=== PATIENT | male | born 1940 | race Caucasian/White ===

== ENCOUNTER → 2023-05-21 09:24 | Outpatient (REF) | payer OTHER, SELFPAY ==
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
[2023-05-21 10:24] VITALS: BP 99/43
[2023-05-21 10:40] VITALS: BP 97/42
[2023-05-21 12:41] VITALS: BP 104/45
[2023-06-05 08:48] LABS: % Basophils 0.9 % (0-2); % Eosinophils 5.5 % (0-6); % Immature Granulocytes 0.3 % (0-0.5); % Lymphocytes 15.7 % (20.5-51.1); % Neutrophils 57.6 % (42.2-75.2); Absolute Eosinophils 0.2 10^3/uL (0-0.7); Absolute Lymphocytes 0.5 10^3/uL (1.2-3.4); Absolute Monocytes 0.7 10^3/uL (0.1-0.6); Absolute Neutrophils 1.9 10^3/uL (1.4-6.5); Hematocrit 29.7 % (39.0-52.0); Hemoglobin 9.6 g/dL (13.0-18.0); Mean Corp Hgb Conc. 32.3 g/dL (33.0-37.0); Mean Corpuscular Volume 105.3 fL (80.0-94.0); Mean Platelet Volume 10.6 fL (7.4-10.4); Platelet Count 228 10^3/uL (130-400); Red Blood Cell Count 2.82 10^6/uL (4.70-6.10); White Blood Cell Count 3.3 10^3/uL (4.8-10.8)
[2023-06-07 19:26] LABS: Erythropoietin (EPO) 1204 mU/mL (4-27)
== END ==
LOC: OIDL 09:24
PROVIDERS: ATTENDING PHYSICIAN Internal Medicine Hematology & Oncology; FAMILY PHYSICIAN Family Medicine
DX: D46.9 Myelodysplastic syndrome, unspecified (principal); R53.83 Other fatigue; I80.202 Phlebitis and thrombophlebitis of unspecified deep vessels of left lower extremity; D50.0 Iron deficiency anemia secondary to blood loss (chronic); D51.9 Vitamin B12 deficiency anemia, unspecified; D52.8 Other folate deficiency anemias
CPT/HCPCS: 36415; 36430; 82668; 85025; 86850; 86900; 86901; 86920; P9016

== ENCOUNTER 2023-10-03 11:19 | Outpatient (RCR) | payer OTHER, SELFPAY ==
[2023-10-03 11:38] VITALS: BP 113/34
[2023-10-03 12:03] VITALS: BP 113/34
[2023-10-03 12:28] VITALS: BP 108/43
[2023-10-03 15:21] VITALS: BP 108/48
== END 2023-10-11 23:59 | disposition home or self-care (01) ==
LOC: OID 11:19
PROVIDERS: ATTENDING PHYSICIAN Internal Medicine Hematology & Oncology; FAMILY PHYSICIAN Family Medicine
DX: I80.202 Phlebitis and thrombophlebitis of unspecified deep vessels of left lower extremity (principal)
CPT/HCPCS: 36430; 86850; 86900; 86901; 86920; P9016

== ENCOUNTER → 2023-10-30 08:05 | Outpatient (REF) | payer OTHER, SELFPAY ==
[2023-10-30 08:26] LABS: % Basophils 1.4 % (0-2); % Eosinophils 6.2 % (0-6); % Immature Granulocytes 0.5 % (0-0.5); % Lymphocytes 11.9 % (20.5-51.1); % Monocytes 16.2 % (1.7-9.3); % Neutrophils 63.8 % (42.2-75.2); Absolute Basophils 0.1 10^3/uL (0-0.2); Absolute Eosinophils 0.2 10^3/uL (0-0.7); Absolute Lymphocytes 0.4 10^3/uL (1.2-3.4); Absolute Monocytes 0.6 10^3/uL (0.1-0.6); Absolute Neutrophils 2.4 10^3/uL (1.4-6.5); Hematocrit 26.3 % (39.0-52.0); Hemoglobin 8.7 g/dL (13.0-18.0); Mean Corp Hgb Conc. 33.1 g/dL (33.0-37.0); Mean Corpuscular Hgb 34.1 pg (27.0-31.0); Mean Corpuscular Volume 103.1 fL (80.0-94.0); Mean Platelet Volume 10.9 fL (7.4-10.4); Platelet Count 181 10^3/uL (130-400); Red Blood Cell Count 2.55 10^6/uL (4.70-6.10); Red Cell Dist. Width 15.7 % (11.5-14.5); White Blood Cell Count 3.7 10^3/uL (4.8-10.8)
[2023-10-30 09:43] LABS: ALT (SGPT) < 10 U/L (0-50); AST (SGOT) 21 U/L (17-59); Albumin 3.6 g/dl (3.5-5.0); Alkaline Phosphatase 135 U/L (38-126); Blood Urea Nitrogen 23 mg/dl (9-20); Calcium 8.4 mg/dl (8.4-10.2); Carbon Dioxide 27 mmol/L (22-30); Chloride 103 mmol/L (98-107); Glucose 93 mg/dl (70-99); HDL Cholesterol 51 mg/dl; LDL Cholesterol, Calculated 11 mg/dl; Potassium 4.2 mmol/L (3.5-5.1); Sodium 136 mmol/L (135-145); Total Cholesterol 72 mg/dl (50-199); Total Protein 7.8 g/dl (6.3-8.2); Triglyceride 54 mg/dl (10-149); Very Low Density Lipoprotein 10 mg/dl (0-30); eGFR > 60.00
[2023-10-30 10:12] LABS: Total Bilirubin 1.2 mg/dl (0.2-1.3)
== END ==
LOC: OIDL 08:05
PROVIDERS: ATTENDING PHYSICIAN Internal Medicine Hematology & Oncology; FAMILY PHYSICIAN Family Medicine
DX: I80.202 Phlebitis and thrombophlebitis of unspecified deep vessels of left lower extremity (principal); D46.9 Myelodysplastic syndrome, unspecified; D50.0 Iron deficiency anemia secondary to blood loss (chronic); D51.9 Vitamin B12 deficiency anemia, unspecified; D52.8 Other folate deficiency anemias
CPT/HCPCS: 36415; 80053; 80061; 82728; 85025

== ENCOUNTER → 2023-11-20 10:01 | Outpatient (REF) | payer OTHER, SELFPAY ==
[2023-11-20 10:14] LABS: % Basophils 0.8 % (0-2); % Eosinophils 3.6 % (0-6); % Immature Granulocytes 2.5 % (0-0.5); % Lymphocytes 9.2 % (20.5-51.1); % Monocytes 11.5 % (1.7-9.3); % Neutrophils 72.4 % (42.2-75.2); Absolute Eosinophils 0.2 10^3/uL (0-0.7); Absolute Immature Granulocytes 0.1 10^3/uL (0-0.05); Absolute Lymphocytes 0.5 10^3/uL (1.2-3.4); Absolute Monocytes 0.6 10^3/uL (0.1-0.6); Absolute Neutrophils 3.8 10^3/uL (1.4-6.5); Hematocrit 22.3 % (39.0-52.0); Hemoglobin 7.4 g/dL (13.0-18.0); Mean Corp Hgb Conc. 33.2 g/dL (33.0-37.0); Mean Corpuscular Hgb 34.7 pg (27.0-31.0); Mean Corpuscular Volume 104.7 fL (80.0-94.0); Mean Platelet Volume 9.4 fL (7.4-10.4); Platelet Count 299 10^3/uL (130-400); Red Blood Cell Count 2.13 10^6/uL (4.70-6.10); Red Cell Dist. Width 15.8 % (11.5-14.5); White Blood Cell Count 5.2 10^3/uL (4.8-10.8)
== END ==
LOC: OIDL 10:01
PROVIDERS: ATTENDING PHYSICIAN Internal Medicine Hematology & Oncology; FAMILY PHYSICIAN Family Medicine
DX: D46.9 Myelodysplastic syndrome, unspecified (principal); D50.0 Iron deficiency anemia secondary to blood loss (chronic); I80.202 Phlebitis and thrombophlebitis of unspecified deep vessels of left lower extremity
CPT/HCPCS: 36415; 85025; 86850; 86900; 86901; 86920

== ENCOUNTER → 2023-12-04 08:36 | Outpatient (REF) | payer OTHER, SELFPAY ==
[2023-12-04 09:01] LABS: % Basophils 1.8 % (0-2); % Eosinophils 4.6 % (0-6); % Immature Granulocytes 0.9 % (0-0.5); % Lymphocytes 11.7 % (20.5-51.1); % Monocytes 25.2 % (1.7-9.3); % Neutrophils 55.8 % (42.2-75.2); Absolute Basophils 0.1 10^3/uL (0-0.2); Absolute Eosinophils 0.2 10^3/uL (0-0.7); Absolute Lymphocytes 0.4 10^3/uL (1.2-3.4); Absolute Monocytes 0.8 10^3/uL (0.1-0.6); Absolute Neutrophils 1.8 10^3/uL (1.4-6.5); Hematocrit 26.7 % (39.0-52.0); Hemoglobin 8.7 g/dL (13.0-18.0); Mean Corp Hgb Conc. 32.6 g/dL (33.0-37.0); Mean Corpuscular Hgb 32.6 pg (27.0-31.0); Mean Platelet Volume 10.6 fL (7.4-10.4); Platelet Count 184 10^3/uL (130-400); Red Blood Cell Count 2.67 10^6/uL (4.70-6.10); Red Cell Dist. Width 18.1 % (11.5-14.5); White Blood Cell Count 3.3 10^3/uL (4.8-10.8)
== END ==
LOC: OIDL 08:36
PROVIDERS: ATTENDING PHYSICIAN Internal Medicine Hematology & Oncology; FAMILY PHYSICIAN Family Medicine
DX: I80.202 Phlebitis and thrombophlebitis of unspecified deep vessels of left lower extremity (principal); D46.9 Myelodysplastic syndrome, unspecified; D50.0 Iron deficiency anemia secondary to blood loss (chronic); D51.9 Vitamin B12 deficiency anemia, unspecified; D52.8 Other folate deficiency anemias
CPT/HCPCS: 36415; 85025

== ENCOUNTER → 2023-12-04 09:24 | Outpatient (REF) | payer OTHER, SELFPAY | LOC: RAD 09:24 | PROVIDERS: ATTENDING PHYSICIAN Internal Medicine Hematology & Oncology; FAMILY PHYSICIAN Family Medicine | DX: I80.202 Phlebitis and thrombophlebitis of unspecified deep vessels of left lower extremity (principal) | CPT/HCPCS: 71260; 74177; Q9967 ==

== ENCOUNTER → 2023-12-07 07:05 | Outpatient (REF) | payer OTHER, SELFPAY ==
[2023-12-07] VITALS (7 sets, daily range): BP systolic 61–115; BP diastolic 47–83
[2023-12-07 07:42] LABS: Hematocrit 24.7 % (39.0-52.0); Hemoglobin 8.1 g/dL (13.0-18.0); Mean Corp Hgb Conc. 32.8 g/dL (33.0-37.0); Mean Corpuscular Hgb 32.3 pg (27.0-31.0); Mean Corpuscular Volume 98.4 fL (80.0-94.0); Mean Platelet Volume 10.2 fL (7.4-10.4); Platelet Count 245 10^3/uL (130-400); Red Blood Cell Count 2.51 10^6/uL (4.70-6.10); Red Cell Dist. Width 18.5 % (11.5-14.5); White Blood Cell Count 2.8 10^3/uL (4.8-10.8)
[2023-12-07 08:07] LABS: Absolute Neutrophils -Man Diff 1.5 10^3/uL (1.4-6.5); Anisocytosis 1+; Band Neutrophils 2 % (0-3); Eosinophils 5 % (0-6); Lymphocytes 24 % (20-51); Monocytes 16 % (2-9); Normal RBC Morphology No; Ovalocytes 2+; Platelets Checked Yes; Segmented Neutrophils 53 % (42-75)
[2023-12-07 08:08] LABS: Polychromasia Slight; Schistocytes Slight; Tear Drop Red Blood Cells Slight; Total Cells Counted 100
[2023-12-07 08:10] LABS: PT 19.8 Sec (11.4-14.6)
[2023-12-07] MEDS: ATIVAN 0.5 MG IV (08:38)
[2023-12-07] MEDS: FLUSH (NSS) 1 FLUSH IV (08:38)
[2023-12-07] MEDS: NSS (PRESERVATIVE FREE) 0.25 ML IV (08:38)
== END ==
LOC: RADI 07:05
PROVIDERS: Physician Assistant; ATTENDING PHYSICIAN Internal Medicine Hematology & Oncology; FAMILY PHYSICIAN Family Medicine
DX: D46.9 Myelodysplastic syndrome, unspecified (principal); D50.0 Iron deficiency anemia secondary to blood loss (chronic); I80.202 Phlebitis and thrombophlebitis of unspecified deep vessels of left lower extremity; D51.9 Vitamin B12 deficiency anemia, unspecified; D52.8 Other folate deficiency anemias; D68.8 Other specified coagulation defects
CPT/HCPCS: 88305; 88311; 88312; 36415; 38222; 77012; 85025; 85610; 88313; 88341; 88342

== ENCOUNTER 2023-12-11 08:39 | Outpatient (RCR) | payer OTHER, SELFPAY ==
[2023-11-22 09:32] VITALS: BP 99/46
[2023-11-22 09:45] VITALS: BP 99/46
[2023-11-22 10:04] VITALS: BP 97/46
[2023-11-22 12:12] VITALS: BP 98/46
[2023-12-11 08:43] LABS: % Basophils 1.7 % (0-2); % Eosinophils 8.2 % (0-6); % Immature Granulocytes 1.4 % (0-0.5); % Lymphocytes 17.3 % (20.5-51.1); % Neutrophils 52.4 % (42.2-75.2); Absolute Basophils 0.1 10^3/uL (0-0.2); Absolute Eosinophils 0.2 10^3/uL (0-0.7); Absolute Lymphocytes 0.5 10^3/uL (1.2-3.4); Absolute Monocytes 0.6 10^3/uL (0.1-0.6); Absolute Neutrophils 1.5 10^3/uL (1.4-6.5); Hematocrit 23.9 % (39.0-52.0); Hemoglobin 7.9 g/dL (13.0-18.0); Mean Corp Hgb Conc. 33.1 g/dL (33.0-37.0); Mean Corpuscular Hgb 33.5 pg (27.0-31.0); Mean Corpuscular Volume 101.3 fL (80.0-94.0); Mean Platelet Volume 10.1 fL (7.4-10.4); Platelet Count 208 10^3/uL (130-400); Red Blood Cell Count 2.36 10^6/uL (4.70-6.10); Red Cell Dist. Width 18.5 % (11.5-14.5); White Blood Cell Count 2.9 10^3/uL (4.8-10.8)
== END 2023-12-11 23:59 | disposition home or self-care (01) ==
LOC: OID 08:39
PROVIDERS: ATTENDING PHYSICIAN Internal Medicine Hematology & Oncology; FAMILY PHYSICIAN Family Medicine
DX: I80.202 Phlebitis and thrombophlebitis of unspecified deep vessels of left lower extremity (principal); D46.9 Myelodysplastic syndrome, unspecified; D52.8 Other folate deficiency anemias; D51.9 Vitamin B12 deficiency anemia, unspecified
CPT/HCPCS: 36415; 36430; 85025; 86850; 86900; 86901; 86920; P9016

== ENCOUNTER 2024-01-01 08:24 | Outpatient (RCR) | payer OTHER, SELFPAY ==
[2023-12-18 12:58] LABS: % Basophils 1.1 % (0-2); % Eosinophils 3.4 % (0-6); % Immature Granulocytes 0.7 % (0-0.5); % Lymphocytes 26.1 % (20.5-51.1); % Monocytes 15.7 % (1.7-9.3); Absolute Eosinophils 0.1 10^3/uL (0-0.7); Absolute Lymphocytes 0.7 10^3/uL (1.2-3.4); Absolute Monocytes 0.4 10^3/uL (0.1-0.6); Absolute Neutrophils 1.4 10^3/uL (1.4-6.5); Hematocrit 23.7 % (39.0-52.0); Hemoglobin 7.7 g/dL (13.0-18.0); Mean Corp Hgb Conc. 32.5 g/dL (33.0-37.0); Mean Corpuscular Hgb 33.2 pg (27.0-31.0); Mean Corpuscular Volume 102.2 fL (80.0-94.0); Mean Platelet Volume 10.5 fL (7.4-10.4); Platelet Count 209 10^3/uL (130-400); Red Blood Cell Count 2.32 10^6/uL (4.70-6.10); Red Cell Dist. Width 19.4 % (11.5-14.5); White Blood Cell Count 2.7 10^3/uL (4.8-10.8)
[2023-12-20 11:40] VITALS: BP 113/44
[2023-12-20 12:06] VITALS: BP 113/44
[2023-12-20 12:23] VITALS: BP 102/41
[2023-12-20 14:02] VITALS: BP 110/67
[2024-01-01 08:46] LABS: % Eosinophils 6.8 % (0-6); % Lymphocytes 13.2 % (20.5-51.1); % Monocytes 15.1 % (1.7-9.3); % Neutrophils 63.9 % (42.2-75.2); Absolute Eosinophils 0.1 10^3/uL (0-0.7); Absolute Lymphocytes 0.3 10^3/uL (1.2-3.4); Absolute Monocytes 0.3 10^3/uL (0.1-0.6); Absolute Neutrophils 1.3 10^3/uL (1.4-6.5); Hematocrit 24.8 % (39.0-52.0); Hemoglobin 8.2 g/dL (13.0-18.0); Mean Corp Hgb Conc. 33.1 g/dL (33.0-37.0); Mean Corpuscular Hgb 33.3 pg (27.0-31.0); Mean Corpuscular Volume 100.8 fL (80.0-94.0); Mean Platelet Volume 10.2 fL (7.4-10.4); Platelet Count 191 10^3/uL (130-400); Red Blood Cell Count 2.46 10^6/uL (4.70-6.10); Red Cell Dist. Width 20.9 % (11.5-14.5); White Blood Cell Count 2.1 10^3/uL (4.8-10.8)
[2024-01-01 09:54] LABS: Iron 77 ug/dl (49-181)
[2024-01-01 10:03] LABS: Percent Saturation 36 % (20-50); Total Iron Binding Capacity 213 ug/dl (261-462)
== END 2024-01-11 23:59 | disposition home or self-care (01) ==
LOC: OID 08:24
PROVIDERS: ATTENDING PHYSICIAN Internal Medicine Hematology & Oncology; FAMILY PHYSICIAN Family Medicine
DX: I80.202 Phlebitis and thrombophlebitis of unspecified deep vessels of left lower extremity (principal); D46.9 Myelodysplastic syndrome, unspecified; D52.8 Other folate deficiency anemias; D51.9 Vitamin B12 deficiency anemia, unspecified
CPT/HCPCS: 36415; 36430; 82728; 83540; 83550; 85025; 86850; 86900; 86901; 86920; P9016

== ENCOUNTER 2024-01-14 18:50 | Emergency (ER) | payer OTHER, SELFPAY ==
[2024-01-14 18:58] VITALS: BP 115/58
[2024-01-14 19:15] LABS: Hematocrit 24.5 % (39.0-52.0); Mean Corp Hgb Conc. 32.7 g/dL (33.0-37.0); Mean Corpuscular Hgb 33.5 pg (27.0-31.0); Mean Corpuscular Volume 102.5 fL (80.0-94.0); Mean Platelet Volume 11.1 fL (7.4-10.4); Platelet Count 152 10^3/uL (130-400); Red Blood Cell Count 2.39 10^6/uL (4.70-6.10); Red Cell Dist. Width 22.7 % (11.5-14.5); White Blood Cell Count 3.8 10^3/uL (4.8-10.8)
[2024-01-14 19:42] LABS: Absolute Neutrophils -Man Diff 2.3 10^3/uL (1.4-6.5); Band Neutrophils 0 % (0-3); Eosinophils 3 % (0-6); Lymphocytes 13 % (20-51); Monocytes 21 % (2-9); Myelocytes 1 % (-); Normal RBC Morphology No; Platelets Checked Yes; Segmented Neutrophils 62 % (42-75)
[2024-01-14 19:43] LABS: Anisocytosis 2+; Macrocytosis 1+; Ovalocytes Slight
[2024-01-14 19:45] LABS: Schistocytes Slight; Tear Drop Red Blood Cells Slight; Total Cells Counted 100
[2024-01-14 19:46] LABS: Polychromasia Slight
[2024-01-14 19:52] LABS: ALT (SGPT) 12 U/L (0-50); AST (SGOT) 26 U/L (17-59); Albumin 3.8 g/dl (3.5-5.0); Alkaline Phosphatase 147 U/L (38-126); Blood Urea Nitrogen 21 mg/dl (9-20); Calcium 8.7 mg/dl (8.4-10.2); Carbon Dioxide 26 mmol/L (22-30); Chloride 104 mmol/L (98-107); Glucose 101 mg/dl (70-99); NT-proBNP 4700 pg/ml; Potassium 4.9 mmol/L (3.5-5.1); Sodium 138 mmol/L (135-145); Total Bilirubin 1.2 mg/dl (0.2-1.3); Total Protein 8.1 g/dl (6.3-8.2); Troponin I < 0.012 ng/ml; eGFR > 60.00
== END 2024-01-15 00:25 ==
LOC: EMR 18:50
PROVIDERS: Student in an Organized Health Care Education/Training Program
DX: M79.602 Pain in left arm (principal); Z53.21 Procedure and treatment not carried out due to patient leaving prior to being seen by health care provider
CPT/HCPCS: 99281; 80053; 83880; 84484; 85025; 93005

== ENCOUNTER → 2024-01-15 08:13 | Outpatient (REF) | payer OTHER, SELFPAY ==
[2024-01-15 08:53] LABS: Hematocrit 23.9 % (39.0-52.0); Hemoglobin 7.9 g/dL (13.0-18.0); Mean Corp Hgb Conc. 33.1 g/dL (33.0-37.0); Mean Corpuscular Hgb 34.1 pg (27.0-31.0); Mean Platelet Volume 10.4 fL (7.4-10.4); Platelet Count 158 10^3/uL (130-400); Red Blood Cell Count 2.32 10^6/uL (4.70-6.10); Red Cell Dist. Width 22.2 % (11.5-14.5); White Blood Cell Count 2.7 10^3/uL (4.8-10.8)
[2024-01-15 09:56] LABS: ALT (SGPT) 12 U/L (0-50); AST (SGOT) 23 U/L (17-59); Albumin 3.6 g/dl (3.5-5.0); Alkaline Phosphatase 130 U/L (38-126); Blood Urea Nitrogen 20 mg/dl (9-20); Calcium 8.5 mg/dl (8.4-10.2); Carbon Dioxide 27 mmol/L (22-30); Chloride 103 mmol/L (98-107); Glucose 131 mg/dl (70-99); Potassium 4.2 mmol/L (3.5-5.1); Sodium 138 mmol/L (135-145); Total Bilirubin 1.4 mg/dl (0.2-1.3); Total Protein 7.6 g/dl (6.3-8.2); eGFR > 60.00
[2024-01-15 10:28] LABS: Absolute Neutrophils -Man Diff 1.6 10^3/uL (1.4-6.5); Band Neutrophils 2 % (0-3); Eosinophils 4 % (0-6); Lymphocytes 15 % (20-51); Metamyelocytes 1 % (-); Monocytes 19 % (2-9); Segmented Neutrophils 59 % (42-75)
[2024-01-15 10:29] LABS: Platelets Checked YES
[2024-01-15 10:30] LABS: Normal RBC Morphology No
[2024-01-15 10:32] LABS: Total Cells Counted 100
== END ==
LOC: OIDL 08:13
PROVIDERS: ATTENDING PHYSICIAN Nurse Practitioner Adult Health
DX: D46.9 Myelodysplastic syndrome, unspecified (principal); D50.0 Iron deficiency anemia secondary to blood loss (chronic); I80.202 Phlebitis and thrombophlebitis of unspecified deep vessels of left lower extremity
CPT/HCPCS: 36415; 80053; 85025; 86850; 86900; 86901; 86920

== ENCOUNTER → 2024-01-29 08:45 | Outpatient (REF) | payer OTHER, SELFPAY ==
[2024-01-29 09:27] LABS: % Basophils 0.7 % (0-2); % Eosinophils 1.7 % (0-6); % Immature Granulocytes 0.3 % (0-0.5); % Lymphocytes 24.8 % (20.5-51.1); % Monocytes 14.5 % (1.7-9.3); Absolute Eosinophils 0.1 10^3/uL (0-0.7); Absolute Lymphocytes 0.7 10^3/uL (1.2-3.4); Absolute Monocytes 0.4 10^3/uL (0.1-0.6); Absolute Neutrophils 1.7 10^3/uL (1.4-6.5); Hematocrit 28.1 % (39.0-52.0); Hemoglobin 9.2 g/dL (13.0-18.0); Mean Corp Hgb Conc. 32.7 g/dL (33.0-37.0); Mean Corpuscular Volume 100.7 fL (80.0-94.0); Mean Platelet Volume 10.3 fL (7.4-10.4); Platelet Count 215 10^3/uL (130-400); Red Blood Cell Count 2.79 10^6/uL (4.70-6.10); Red Cell Dist. Width 18.6 % (11.5-14.5); White Blood Cell Count 2.9 10^3/uL (4.8-10.8)
== END ==
LOC: OIDL 08:45
PROVIDERS: ATTENDING PHYSICIAN Nurse Practitioner Adult Health
DX: I80.202 Phlebitis and thrombophlebitis of unspecified deep vessels of left lower extremity (principal); D46.9 Myelodysplastic syndrome, unspecified; D50.0 Iron deficiency anemia secondary to blood loss (chronic); D51.9 Vitamin B12 deficiency anemia, unspecified
CPT/HCPCS: 36415; 85025

== ENCOUNTER → 2024-02-05 09:10 | Outpatient (REF) | payer OTHER, SELFPAY ==
[2024-02-05 09:21] LABS: % Basophils 0.8 % (0-2); % Immature Granulocytes 0.4 % (0-0.5); % Lymphocytes 14.3 % (20.5-51.1); % Monocytes 4.9 % (1.7-9.3); % Neutrophils 76.6 % (42.2-75.2); Absolute Eosinophils 0.1 10^3/uL (0-0.7); Absolute Lymphocytes 0.4 10^3/uL (1.2-3.4); Absolute Monocytes 0.1 10^3/uL (0.1-0.6); Hematocrit 23.3 % (39.0-52.0); Hemoglobin 7.8 g/dL (13.0-18.0); Mean Corp Hgb Conc. 33.5 g/dL (33.0-37.0); Mean Corpuscular Hgb 34.2 pg (27.0-31.0); Mean Corpuscular Volume 102.2 fL (80.0-94.0); Mean Platelet Volume 10.3 fL (7.4-10.4); Platelet Count 124 10^3/uL (130-400); Red Blood Cell Count 2.28 10^6/uL (4.70-6.10); Red Cell Dist. Width 18.2 % (11.5-14.5); White Blood Cell Count 2.7 10^3/uL (4.8-10.8)
[2024-02-05 10:58] LABS: Albumin 3.8 g/dl (3.5-5.0); Blood Urea Nitrogen 23 mg/dl (9-20); Calcium 8.8 mg/dl (8.4-10.2); Carbon Dioxide 29 mmol/L (22-30); Chloride 102 mmol/L (98-107); Glucose 96 mg/dl (70-99); Phosphorus 3.5 mg/dl (2.5-4.5); Potassium 4.4 mmol/L (3.5-5.1); Sodium 138 mmol/L (135-145); eGFR > 60.00
== END ==
LOC: OIDL 09:10
PROVIDERS: Internal Medicine Cardiovascular Disease; ATTENDING PHYSICIAN Internal Medicine Hematology & Oncology
DX: I80.202 Phlebitis and thrombophlebitis of unspecified deep vessels of left lower extremity (principal); D46.9 Myelodysplastic syndrome, unspecified; D50.0 Iron deficiency anemia secondary to blood loss (chronic)
CPT/HCPCS: 36415; 80069; 85025

== ENCOUNTER 2024-02-06 07:40 | Outpatient (RCR) | payer OTHER, SELFPAY ==
[2024-01-17 11:30] VITALS: BP 109/47
[2024-01-17 11:53] VITALS: BP 109/47
[2024-01-17 12:10] VITALS: BP 101/37
[2024-01-17 13:41] VITALS: BP 108/43
[2024-01-17] MEDS: LASIX 20 MG IV (13:44)
[2024-02-06 07:50] VITALS: BP 102/39
[2024-02-06 08:18] VITALS: BP 102/39
[2024-02-06 08:36] VITALS: BP 90/38
[2024-02-06 10:37] VITALS: BP 92/42
== END 2024-02-10 23:59 | disposition home or self-care (01) ==
LOC: OID 07:40
PROVIDERS: ATTENDING PHYSICIAN Internal Medicine Hematology & Oncology; FAMILY PHYSICIAN Family Medicine
DX: I80.202 Phlebitis and thrombophlebitis of unspecified deep vessels of left lower extremity (principal); D46.9 Myelodysplastic syndrome, unspecified; D52.8 Other folate deficiency anemias; D51.9 Vitamin B12 deficiency anemia, unspecified
CPT/HCPCS: 36430; 86850; 86900; 86901; 86920; 96374; P9016

== ENCOUNTER → 2024-02-12 10:47 | Outpatient (REF) | payer OTHER, SELFPAY ==
[2024-02-12 11:27] LABS: Blood Urea Nitrogen 21 mg/dl (9-20); Calcium 9.1 mg/dl (8.4-10.2); Carbon Dioxide 29 mmol/L (22-30); Chloride 100 mmol/L (98-107); Glucose 101 mg/dl (70-99); Iron 66 ug/dl (49-181); Magnesium 2.2 mg/dl (1.6-2.3); Sodium 138 mmol/L (135-145); eGFR > 60.00
[2024-02-12 11:36] LABS: Percent Saturation 41 % (20-50); Total Iron Binding Capacity 159 ug/dl (261-462)
[2024-02-12 11:54] LABS: Hematocrit 31.4 % (39.0-52.0); Hemoglobin 10.4 g/dL (13.0-18.0); Mean Corp Hgb Conc. 33.1 g/dL (33.0-37.0); Mean Corpuscular Hgb 33.1 pg (27.0-31.0); Mean Platelet Volume 10.8 fL (7.4-10.4); Platelet Count 332 10^3/uL (130-400); Red Blood Cell Count 3.14 10^6/uL (4.70-6.10); White Blood Cell Count 4.2 10^3/uL (4.8-10.8)
[2024-02-12 12:40] LABS: Absolute Neutrophils -Man Diff 2.3 10^3/uL (1.4-6.5); Band Neutrophils 4 % (0-3); Eosinophils 3 % (0-6); Lymphocytes 20 % (20-51); Monocytes 20 % (2-9); Myelocytes 1 % (-); Normal RBC Morphology No; Platelets Checked Yes; Segmented Neutrophils 52 % (42-75)
[2024-02-12 12:41] LABS: Acanthocytes 1+; Anisocytosis 1+; Hypochromasia 1+; Ovalocytes 1+; Polychromasia 1+; Total Cells Counted 100
== END ==
LOC: OIDL 10:47
PROVIDERS: ATTENDING PHYSICIAN Nurse Practitioner Adult Health; FAMILY PHYSICIAN Family Medicine
DX: I80.202 Phlebitis and thrombophlebitis of unspecified deep vessels of left lower extremity (principal); D46.9 Myelodysplastic syndrome, unspecified; D50.0 Iron deficiency anemia secondary to blood loss (chronic); D51.9 Vitamin B12 deficiency anemia, unspecified
CPT/HCPCS: 36415; 80048; 82728; 83540; 83550; 83735; 85025

== ENCOUNTER → 2024-03-03 07:34 | Outpatient (REF) | payer OTHER, SELFPAY | LOC: RCS 07:34 | PROVIDERS: ATTENDING PHYSICIAN Internal Medicine Cardiovascular Disease; FAMILY PHYSICIAN Family Medicine | DX: I25.10 Atherosclerotic heart disease of native coronary artery without angina pectoris (principal); Z95.1 Presence of aortocoronary bypass graft; R60.0 Localized edema | CPT/HCPCS: 93306 ==

== ENCOUNTER → 2024-03-04 14:16 | Outpatient (REF) | payer OTHER, SELFPAY | LOC: RAD 14:16 | PROVIDERS: ATTENDING PHYSICIAN Internal Medicine Hematology & Oncology; FAMILY PHYSICIAN Family Medicine | DX: I80.202 Phlebitis and thrombophlebitis of unspecified deep vessels of left lower extremity (principal); D46.9 Myelodysplastic syndrome, unspecified; D50.0 Iron deficiency anemia secondary to blood loss (chronic); D51.9 Vitamin B12 deficiency anemia, unspecified; D52.8 Other folate deficiency anemias | CPT/HCPCS: 73502 ==

== ENCOUNTER 2024-03-11 10:21 | Outpatient (RCR) | payer OTHER, SELFPAY ==
[2024-02-26 09:14] LABS: % Basophils 1.2 % (0-2); % Eosinophils 2.8 % (0-6); % Immature Granulocytes 0.8 % (0-0.5); % Lymphocytes 16.9 % (20.5-51.1); % Monocytes 13.7 % (1.7-9.3); % Neutrophils 64.6 % (42.2-75.2); Absolute Eosinophils 0.1 10^3/uL (0-0.7); Absolute Lymphocytes 0.4 10^3/uL (1.2-3.4); Absolute Monocytes 0.3 10^3/uL (0.1-0.6); Absolute Neutrophils 1.6 10^3/uL (1.4-6.5); Hematocrit 24.5 % (39.0-52.0); Hemoglobin 8.2 g/dL (13.0-18.0); Mean Corp Hgb Conc. 33.5 g/dL (33.0-37.0); Mean Corpuscular Hgb 34.2 pg (27.0-31.0); Mean Corpuscular Volume 102.1 fL (80.0-94.0); Mean Platelet Volume 10.9 fL (7.4-10.4); Platelet Count 127 10^3/uL (130-400); Red Cell Dist. Width 17.2 % (11.5-14.5); White Blood Cell Count 2.5 10^3/uL (4.8-10.8)
[2024-03-04 13:12] LABS: % Basophils 0.4 % (0-2); % Eosinophils 7.9 % (0-6); % Immature Granulocytes 0.4 % (0-0.5); % Lymphocytes 18.8 % (20.5-51.1); % Monocytes 7.5 % (1.7-9.3); Absolute Eosinophils 0.2 10^3/uL (0-0.7); Absolute Lymphocytes 0.5 10^3/uL (1.2-3.4); Absolute Monocytes 0.2 10^3/uL (0.1-0.6); Absolute Neutrophils 1.6 10^3/uL (1.4-6.5); Hematocrit 21.9 % (39.0-52.0); Hemoglobin 7.3 g/dL (13.0-18.0); Mean Corp Hgb Conc. 33.3 g/dL (33.0-37.0); Mean Corpuscular Hgb 34.4 pg (27.0-31.0); Mean Corpuscular Volume 103.3 fL (80.0-94.0); Mean Platelet Volume 10.2 fL (7.4-10.4); Platelet Count 60 10^3/uL (130-400); Red Blood Cell Count 2.12 10^6/uL (4.70-6.10); Red Cell Dist. Width 17.7 % (11.5-14.5); White Blood Cell Count 2.4 10^3/uL (4.8-10.8)
[2024-03-05 08:08] VITALS: BP 97/37
[2024-03-05 08:24] VITALS: BP 104/38
[2024-03-05 10:24] VITALS: BP 90/39
[2024-03-05 10:34] VITALS: BP 106/47
[2024-03-11 15:54] LABS: Hematocrit 29.8 % (39.0-52.0); Hemoglobin 10.1 g/dL (13.0-18.0); Mean Corp Hgb Conc. 33.9 g/dL (33.0-37.0); Mean Corpuscular Hgb 34.6 pg (27.0-31.0); Mean Corpuscular Volume 102.1 fL (80.0-94.0); Mean Platelet Volume 10.8 fL (7.4-10.4); Platelet Count 239 10^3/uL (130-400); Red Blood Cell Count 2.92 10^6/uL (4.70-6.10); Red Cell Dist. Width 20.4 % (11.5-14.5); White Blood Cell Count 3.1 10^3/uL (4.8-10.8)
[2024-03-11 16:52] LABS: Absolute Neutrophils -Man Diff 1.4 10^3/uL (1.4-6.5); Band Neutrophils 3 % (0-3); Eosinophils 1 % (0-6); Lymphocytes 19 % (20-51); Metamyelocytes 1 % (-); Monocytes 25 % (2-9); Myelocytes 4 % (-); Segmented Neutrophils 45 % (42-75)
[2024-03-11 16:53] LABS: Platelets Checked Yes
[2024-03-11 16:54] LABS: Anisocytosis 1+; Hypochromasia 1+; Normal RBC Morphology No; Ovalocytes 1+; Polychromasia 1+
[2024-03-11 16:55] LABS: Acanthocytes 1+; Total Cells Counted 100
== END 2024-03-12 23:59 | disposition home or self-care (01) ==
LOC: OID 10:21
PROVIDERS: ATTENDING PHYSICIAN Internal Medicine Hematology & Oncology; FAMILY PHYSICIAN Family Medicine
DX: I80.202 Phlebitis and thrombophlebitis of unspecified deep vessels of left lower extremity (principal); D46.9 Myelodysplastic syndrome, unspecified; D52.8 Other folate deficiency anemias; D51.9 Vitamin B12 deficiency anemia, unspecified; D52.9 Folate deficiency anemia, unspecified
CPT/HCPCS: 36415; 36430; 85025; 86850; 86900; 86901; 86920; P9016

== ENCOUNTER 2024-04-01 08:36 | Outpatient (RCR) | payer OTHER, SELFPAY ==
[2024-03-28 09:40] VITALS: BP 109/49
[2024-03-28 11:01] VITALS: BP 109/49
[2024-03-28 11:19] VITALS: BP 91/39
[2024-03-28 13:11] VITALS: BP 97/42
[2024-04-01 09:09] LABS: % Basophils 0.8 % (0-2); % Eosinophils 5.3 % (0-6); % Immature Granulocytes 0.4 % (0-0.5); % Lymphocytes 15.4 % (20.5-51.1); % Monocytes 9.8 % (1.7-9.3); % Neutrophils 68.3 % (42.2-75.2); Absolute Eosinophils 0.1 10^3/uL (0-0.7); Absolute Lymphocytes 0.4 10^3/uL (1.2-3.4); Absolute Monocytes 0.3 10^3/uL (0.1-0.6); Absolute Neutrophils 1.8 10^3/uL (1.4-6.5); Hematocrit 25.6 % (39.0-52.0); Hemoglobin 8.5 g/dL (13.0-18.0); Mean Corp Hgb Conc. 33.2 g/dL (33.0-37.0); Mean Corpuscular Hgb 33.7 pg (27.0-31.0); Mean Corpuscular Volume 101.6 fL (80.0-94.0); Mean Platelet Volume 10.1 fL (7.4-10.4); Platelet Count 76 10^3/uL (130-400); Red Blood Cell Count 2.52 10^6/uL (4.70-6.10); Red Cell Dist. Width 18.6 % (11.5-14.5); White Blood Cell Count 2.7 10^3/uL (4.8-10.8)
== END 2024-04-12 23:59 | disposition home or self-care (01) ==
LOC: OID 08:36
PROVIDERS: ATTENDING PHYSICIAN Internal Medicine Hematology & Oncology; FAMILY PHYSICIAN Family Medicine
DX: I80.202 Phlebitis and thrombophlebitis of unspecified deep vessels of left lower extremity (principal); D46.9 Myelodysplastic syndrome, unspecified; D52.8 Other folate deficiency anemias; D50.0 Iron deficiency anemia secondary to blood loss (chronic); D52.9 Folate deficiency anemia, unspecified; D51.9 Vitamin B12 deficiency anemia, unspecified; I95.1 Orthostatic hypotension
CPT/HCPCS: 36415; 36430; 85025; 86850; 86900; 86901; 86920; P9016

== ENCOUNTER 2024-04-16 10:34 | Outpatient (RCR) | payer OTHER, SELFPAY ==
[2024-04-15 11:48] LABS: Hematocrit 22.6 % (39.0-52.0); Hemoglobin 7.4 g/dL (13.0-18.0); Mean Corp Hgb Conc. 32.7 g/dL (33.0-37.0); Mean Corpuscular Hgb 34.3 pg (27.0-31.0); Mean Corpuscular Volume 104.6 fL (80.0-94.0); Mean Platelet Volume 10.7 fL (7.4-10.4); Platelet Count 376 10^3/uL (130-400); Red Blood Cell Count 2.16 10^6/uL (4.70-6.10); Red Cell Dist. Width 20.8 % (11.5-14.5)
[2024-04-15 12:07] LABS: Absolute Neutrophils -Man Diff 1.2 10^3/uL (1.4-6.5); Anisocytosis 1+; Band Neutrophils 3 % (0-3); Hypochromasia 1+; Lymphocytes 21 % (20-51); Monocytes 24 % (2-9); Normal RBC Morphology No; Platelets Checked Yes; Polychromasia Slight; Segmented Neutrophils 52 % (42-75); White Blood Cell Count 2.2 10^3/uL (4.8-10.8)
[2024-04-15 12:08] LABS: Total Cells Counted 100
[2024-04-16 10:43] VITALS: BP 107/44
[2024-04-16 11:08] VITALS: BP 107/44
[2024-04-16 11:27] VITALS: BP 102/48
[2024-04-16 13:22] VITALS: BP 96/44
== END 2024-05-12 23:59 | disposition home or self-care (01) ==
LOC: OID 10:34
PROVIDERS: ATTENDING PHYSICIAN Internal Medicine Hematology & Oncology; FAMILY PHYSICIAN Family Medicine
DX: I80.202 Phlebitis and thrombophlebitis of unspecified deep vessels of left lower extremity (principal); D46.9 Myelodysplastic syndrome, unspecified; D52.8 Other folate deficiency anemias; D52.9 Folate deficiency anemia, unspecified; D51.9 Vitamin B12 deficiency anemia, unspecified
CPT/HCPCS: 36415; 36430; 85025; 86850; 86900; 86901; 86920; P9016

== ENCOUNTER → 2024-05-06 09:30 | Outpatient (REF) | payer OTHER, SELFPAY ==
[2024-05-06 09:40] LABS: % Basophils 0.3 % (0-2); % Eosinophils 2.9 % (0-6); % Immature Granulocytes 0.6 % (0-0.5); % Lymphocytes 22.5 % (20.5-51.1); % Monocytes 3.5 % (1.7-9.3); % Neutrophils 70.2 % (42.2-75.2); Absolute Eosinophils 0.1 10^3/uL (0-0.7); Absolute Lymphocytes 0.8 10^3/uL (1.2-3.4); Absolute Monocytes 0.1 10^3/uL (0.1-0.6); Absolute Neutrophils 2.4 10^3/uL (1.4-6.5); Hematocrit 25.1 % (39.0-52.0); Hemoglobin 8.2 g/dL (13.0-18.0); Mean Corp Hgb Conc. 32.7 g/dL (33.0-37.0); Mean Corpuscular Hgb 33.9 pg (27.0-31.0); Mean Corpuscular Volume 103.7 fL (80.0-94.0); Mean Platelet Volume 10.8 fL (7.4-10.4); Platelet Count 94 10^3/uL (130-400); Red Blood Cell Count 2.42 10^6/uL (4.70-6.10); Red Cell Dist. Width 21.3 % (11.5-14.5); White Blood Cell Count 3.4 10^3/uL (4.8-10.8)
== END ==
LOC: OID 09:30
PROVIDERS: ATTENDING PHYSICIAN Internal Medicine Hematology & Oncology
DX: D46.9 Myelodysplastic syndrome, unspecified (principal); D50.0 Iron deficiency anemia secondary to blood loss (chronic); D51.9 Vitamin B12 deficiency anemia, unspecified; D52.8 Other folate deficiency anemias
CPT/HCPCS: 82728; 85025

== ENCOUNTER → 2024-05-27 09:24 | Outpatient (REF) | payer OTHER, SELFPAY ==
[2024-05-27 09:33] LABS: % Basophils 0.3 % (0-2); % Eosinophils 2.1 % (0-6); % Immature Granulocytes 0.5 % (0-0.5); % Lymphocytes 13.6 % (20.5-51.1); % Monocytes 13.3 % (1.7-9.3); % Neutrophils 70.2 % (42.2-75.2); Absolute Eosinophils 0.1 10^3/uL (0-0.7); Absolute Lymphocytes 0.5 10^3/uL (1.2-3.4); Absolute Monocytes 0.5 10^3/uL (0.1-0.6); Absolute Neutrophils 2.7 10^3/uL (1.4-6.5); Hematocrit 29.7 % (39.0-52.0); Hemoglobin 9.6 g/dL (13.0-18.0); Mean Corp Hgb Conc. 32.3 g/dL (33.0-37.0); Mean Corpuscular Hgb 34.5 pg (27.0-31.0); Mean Corpuscular Volume 106.8 fL (80.0-94.0); Mean Platelet Volume 9.9 fL (7.4-10.4); Platelet Count 231 10^3/uL (130-400); Red Blood Cell Count 2.78 10^6/uL (4.70-6.10); Red Cell Dist. Width 20.9 % (11.5-14.5); White Blood Cell Count 3.8 10^3/uL (4.8-10.8)
== END ==
LOC: OIDL 09:24
PROVIDERS: ATTENDING PHYSICIAN Internal Medicine Hematology & Oncology
DX: D50.0 Iron deficiency anemia secondary to blood loss (chronic) (principal); D51.9 Vitamin B12 deficiency anemia, unspecified; D52.8 Other folate deficiency anemias; I95.1 Orthostatic hypotension
CPT/HCPCS: 36415; 85025

== ENCOUNTER → 2024-06-17 09:24 | Outpatient (REF) | payer OTHER, SELFPAY ==
[2024-06-17 09:35] LABS: % Basophils 0.3 % (0-2); % Immature Granulocytes 0.3 % (0-0.5); % Lymphocytes 21.5 % (20.5-51.1); % Monocytes 15.2 % (1.7-9.3); % Neutrophils 60.7 % (42.2-75.2); Absolute Eosinophils 0.1 10^3/uL (0-0.7); Absolute Lymphocytes 0.6 10^3/uL (1.2-3.4); Absolute Monocytes 0.5 10^3/uL (0.1-0.6); Absolute Neutrophils 1.8 10^3/uL (1.4-6.5); Hematocrit 31.5 % (39.0-52.0); Hemoglobin 10.3 g/dL (13.0-18.0); Mean Corp Hgb Conc. 32.7 g/dL (33.0-37.0); Mean Corpuscular Hgb 34.7 pg (27.0-31.0); Mean Corpuscular Volume 106.1 fL (80.0-94.0); Mean Platelet Volume 9.6 fL (7.4-10.4); Platelet Count 270 10^3/uL (130-400); Red Blood Cell Count 2.97 10^6/uL (4.70-6.10); Red Cell Dist. Width 17.4 % (11.5-14.5)
== END ==
LOC: OIDL 09:24
PROVIDERS: ATTENDING PHYSICIAN Internal Medicine Hematology & Oncology
DX: D50.0 Iron deficiency anemia secondary to blood loss (chronic) (principal); D51.9 Vitamin B12 deficiency anemia, unspecified; D52.8 Other folate deficiency anemias; I95.1 Orthostatic hypotension
CPT/HCPCS: 36415; 85025

== ENCOUNTER → 2024-06-26 11:44 | Outpatient (REF) | payer OTHER, SELFPAY | LOC: RAD 11:44 | PROVIDERS: ATTENDING PHYSICIAN Registered Nurse; FAMILY PHYSICIAN Internal Medicine Hematology & Oncology | DX: M25.511 Pain in right shoulder (principal) | CPT/HCPCS: 73030 ==

== ENCOUNTER → 2024-07-08 09:29 | Outpatient (REF) | payer OTHER, SELFPAY ==
[2024-07-08 09:43] LABS: % Basophils 0.3 % (0-2); % Eosinophils 1.2 % (0-6); % Immature Granulocytes 1.6 % (0-0.5); % Lymphocytes 8.6 % (20.5-51.1); % Monocytes 15.3 % (1.7-9.3); Absolute Eosinophils 0.1 10^3/uL (0-0.7); Absolute Immature Granulocytes 0.1 10^3/uL (0-0.05); Absolute Lymphocytes 0.5 10^3/uL (1.2-3.4); Absolute Monocytes 0.9 10^3/uL (0.1-0.6); Absolute Neutrophils 4.2 10^3/uL (1.4-6.5); Hematocrit 39.7 % (39.0-52.0); Hemoglobin 12.8 g/dL (13.0-18.0); Mean Corp Hgb Conc. 32.2 g/dL (33.0-37.0); Mean Corpuscular Hgb 34.8 pg (27.0-31.0); Mean Corpuscular Volume 107.9 fL (80.0-94.0); Mean Platelet Volume 9.8 fL (7.4-10.4); Platelet Count 260 10^3/uL (130-400); Red Blood Cell Count 3.68 10^6/uL (4.70-6.10); Red Cell Dist. Width 16.1 % (11.5-14.5); White Blood Cell Count 5.8 10^3/uL (4.8-10.8)
== END ==
LOC: OIDL 09:29
PROVIDERS: ATTENDING PHYSICIAN Internal Medicine Hematology & Oncology
DX: I80.202 Phlebitis and thrombophlebitis of unspecified deep vessels of left lower extremity (principal); D46.9 Myelodysplastic syndrome, unspecified; D50.0 Iron deficiency anemia secondary to blood loss (chronic); D51.9 Vitamin B12 deficiency anemia, unspecified; D52.8 Other folate deficiency anemias; I95.1 Orthostatic hypotension
CPT/HCPCS: 36415; 85025

== ENCOUNTER → 2024-07-29 08:58 | Outpatient (REF) | payer OTHER, SELFPAY ==
[2024-07-29 09:20] LABS: % Basophils 0.2 % (0-2); % Eosinophils 1.8 % (0-6); % Immature Granulocytes 0.8 % (0-0.5); % Lymphocytes 8.7 % (20.5-51.1); % Monocytes 9.8 % (1.7-9.3); % Neutrophils 78.7 % (42.2-75.2); Absolute Eosinophils 0.1 10^3/uL (0-0.7); Absolute Immature Granulocytes 0.1 10^3/uL (0-0.05); Absolute Lymphocytes 0.5 10^3/uL (1.2-3.4); Absolute Monocytes 0.6 10^3/uL (0.1-0.6); Absolute Neutrophils 4.8 10^3/uL (1.4-6.5); Hemoglobin 12.8 g/dL (13.0-18.0); Mean Corp Hgb Conc. 32.8 g/dL (33.0-37.0); Mean Corpuscular Hgb 34.1 pg (27.0-31.0); Mean Platelet Volume 9.9 fL (7.4-10.4); Platelet Count 290 10^3/uL (130-400); Red Blood Cell Count 3.75 10^6/uL (4.70-6.10); Red Cell Dist. Width 13.9 % (11.5-14.5); White Blood Cell Count 6.1 10^3/uL (4.8-10.8)
== END ==
LOC: OIDL 08:58
PROVIDERS: ATTENDING PHYSICIAN Internal Medicine Hematology & Oncology
DX: I80.202 Phlebitis and thrombophlebitis of unspecified deep vessels of left lower extremity (principal); D46.9 Myelodysplastic syndrome, unspecified; D50.0 Iron deficiency anemia secondary to blood loss (chronic); D51.9 Vitamin B12 deficiency anemia, unspecified; D52.8 Other folate deficiency anemias; I95.1 Orthostatic hypotension
CPT/HCPCS: 36415; 82728; 85025

== ENCOUNTER 2024-09-03 22:38 | Inpatient (IN) | payer OTHER, SELFPAY ==
[2024-09-03] VITALS (7 sets, daily range): BP systolic 93–114; BP diastolic 48–65; BMI 21.7
[2024-09-03 16:55] LABS: Hematocrit 33.3 % (39.0-52.0); Hemoglobin 11.3 g/dL (13.0-18.0); Mean Corp Hgb Conc. 33.9 g/dL (33.0-37.0); Mean Corpuscular Volume 100.3 fL (80.0-94.0); Mean Platelet Volume 10.1 fL (7.4-10.4); Platelet Count 228 10^3/uL (130-400); Red Blood Cell Count 3.32 10^6/uL (4.70-6.10); Red Cell Dist. Width 13.3 % (11.5-14.5)
[2024-09-03 17:06] LABS: ALT (SGPT) 24 U/L (0-50); AST (SGOT) 27 U/L (17-59); Alkaline Phosphatase 102 U/L (38-126); Blood Urea Nitrogen 26 mg/dl (9-20); Calcium 8.7 mg/dl (8.4-10.2); Carbon Dioxide 31 mmol/L (22-30); Chloride 98 mmol/L (98-107); Glucose 100 mg/dl (70-99); Potassium 4.9 mmol/L (3.5-5.1); Sodium 134 mmol/L (135-145); Total Bilirubin 1.1 mg/dl (0.2-1.3); Total Protein 7.2 g/dl (6.3-8.2); eGFR > 60.00
[2024-09-03 17:11] LABS: % Basophils 0.2 % (0-2); % Eosinophils 0.1 % (0-6); % Immature Granulocytes 0.7 % (0-0.5); % Lymphocytes 2.5 % (20.5-51.1); % Monocytes 6.9 % (1.7-9.3); % Neutrophils 89.6 % (42.2-75.2); Absolute Basophils 0.1 10^3/uL (0-0.2); Absolute Immature Granulocytes 0.2 10^3/uL (0-0.05); Absolute Lymphocytes 0.7 10^3/uL (1.2-3.4); Absolute Monocytes 1.9 10^3/uL (0.1-0.6); Absolute Neutrophils 24.2 10^3/uL (1.4-6.5); Nucleated Red Blood Cells % 0 % (-)
[2024-09-03 19:18] LABS: COVID-19 Antigen Negative (Negative)
--- NOTE | 2024-09-03 19:57 | ED.GENMED ---
History of Present Illness
General
Chief Complaint: Weakness
Source: patient
Exam Limitations: none
Time Seen by Provider: 09/03/24 19:17
Nursing documentation reviewed up to this point in time: agreed with
History of Present Illness
History of Present Illness:
Patient is an 83-year-old male with history of MDS completed chemo 2 months ago, history of CT DVT hyperlipidemia neuropathy presents to the ER for evaluation of weakness. Patient has been weak for the past several days. He also had a low-grade
temperature of 100.6 as per son at bedside. Daughter is also at bedside. Patient lives with no other sick contacts at home. Patient has had a mild cough for the past several weeks and several weeks ago was on antibiotics.
He denies any urinary frequency or urgency. Denies abdominal pain back pain nausea vomiting diarrhea constipation.
Patient did eat and drink today.
Past History
Past History
ED Past Medical History: CAD, Cancer, GERD, Hypercholesterolemia, Other and Other
ED Past Surgical History: Appendectomy, Cardiac, Urological and Other
Social History
Tobacco: Non-smoker
Alcohol: None
Personal:
Living: with family
Employment: Retired
Family History
Family History: Negative Early CAD
Review of Systems
Review of Systems
Allergies reviewed?: Yes
Other source history: family
All Other Systems: ROS reviewed and negative except as documented in HPI and ROS
Constitutional: Reports fever and fatigue
Respiratory: Reports cough; Denies trouble breathing
Cardiac: Reports no symptoms
ABD/GI: Reports no symptoms; Denies abdominal pain, nausea or vomiting
: Reports no symptoms
Musculoskeletal: Reports no symptoms
Skin: Reports no symptoms
Neurological: Reports no symptoms
Psychiatric: Reports no symptoms
Phy Exam
General Physical Exam
General Presentation: no apparent distress
General age: appears stated age
General Skin: warm and dry
General Habitus: normal
General Mental: alert
General Hydration: appears well hydrated
Cardiovascular Exam
Cardiovascular Exam: regular rate/rhythm, no murmur and normal peripheral pulses
Pulmonary Exam
Pulmonary Exam: no respiratory distress and other (crackles at left base/mid lung)
Neurological Exam
Neurological Exam: alert and oriented x3
Musculoskeletal Exam
Musculoskeletal Exam: full ROM
Skin Exam
Skin Exam: normal color and warm/dry
Psychiatric Exam
Psychiatric Exam: normal mood/affect
Course
Orders/Labs/Results
Orders:
Orders
09/03/24 16:09
Electrocardiogram (*1) Urgent
Reason for Study: Chest Pain
EKG- Treatment ONCE
09/03/24 16:35
Complete Blood Count/With Diff Urgent
Comprehensive Metabolic Panel Urgent
09/03/24 18:43
COVID-19 Antigen Urgent
Source: Nasal Swab
Influenza A+B Rapid Molecular Urgent
[facility] Source: Nasal Swab
Specimen Description:
09/03/24 20:06
0.9% Sodium Chloride 500 ml [Nss] 500 ml IV BOLUS
09/03/24 20:07
Urinalysis Reflex To Culture Urgent
Chest [CR Chest - 2 Views ] Urgent
Comment:
Reason For Exam: fever
09/03/24 20:16
Lactic Acid Urgent
Blood Culture Q30M
LYNDON Source: Blood/Venous
Specimen Description:
Blood Culture Q30M
LYNDON Source: Blood/Venous
Specimen Description:
09/03/24 21:21
CefTRIAXone [Rocephin] 1,000 mg IV NOW STA
09/03/24 21:22
Azithromycin 500 mg/250 ml [Zithromax Infusion] 500 mg in 250 ml IV NOW
Abnormal Lab Results
09/03/24
16:35
WBC 27.0 H 10^3/uL
(4.8-10.8)
RBC 3.32 L 10^6/uL
(4.70-6.10)
Hgb 11.3 L g/dL
(13.0-18.0)
Hct 33.3 L %
(39.0-52.0)
MCV 100.3 H fL
(80.0-94.0)
MCH 34.0 H pg
(27.0-31.0)
Abs Immat Gran (auto) 0.2 H 10^3/uL
(0-0.05)
Absolute Neuts (auto) 24.2 H 10^3/uL
(1.4-6.5)
Absolute Lymphs (auto) 0.7 L 10^3/uL
(1.2-3.4)
Absolute Monos (auto) 1.9 H 10^3/uL
(0.1-0.6)
Immature Gran % 0.7 H %
(0-0.5)
Neutrophils % 89.6 H %
(42.2-75.2)
Lymphocytes % 2.5 L %
(20.5-51.1)
Sodium 134 L mmol/L
(135-145)
Carbon Dioxide 31 H mmol/L
(22-30)
BUN 26 H mg/dl
(9-20)
Glucose 100 H mg/dl
(70-99)
09/03/24 16:35
09/03/24 16:35
Vital Signs
Initial and Last Documented VS:
Initial Vital Signs
Temp Pulse Resp Pulse Ox
98.3 F 86 16 100
09/03/24 16:05 09/03/24 16:05 09/03/24 16:05 09/03/24 16:05
Last Documented Vital Signs
Temp Pulse Resp BP Pulse Ox
98.3 F 65 19 93/56 96
09/03/24 16:05 09/03/24 19:17 09/03/24 18:58 09/03/24 20:00 09/03/24 20:00
MDM/Problems Addressed
Differential Diagnosis Includes:
Not limited to infection bronchitis pneumonia UTI dehydration
MDM/Problems Addressed:
Patient is an 83-year-old male who presents from home for weakness. Patient started with weakness low-grade fever yesterday and has been weak for the past several days mild cough for the past several weeks complete antibiotics several weeks ago.
Patient presents awake alert no acute distress no shortness of breath no UTI symptoms. X-ray does show left-sided pneumonia. Patient does have crackles at this region. He is not hypoxic. Patient's white count is elevated to 27,000 however has a
normal lactic he has not tachycardic not hypoxic stable appearing no acute distress. Blood cultures ordered IV antibiotics ordered
*Radiology
Radiology exam reviewed: radiology read reviewed
*Pulse Oximetry
Patient hypoxic: no
*EKG
Interpreted by ED Provider?: Yes
Heart Rate: 72
Rate: normal
Rhythm: sinus
Ischemia: no ischemia
*Critical Care Note
Total Time (30-74mins, 75-104mins- exclusive of procedures): Not Applicable
ED Attending Note
-
Portions of this chart may have been created with voice recognition software.� Occasional wrong word or��sound alike� substitutions may have occurred due to the inherent limitations of voice recognition software.
Discharge Plan
Departure
Patient Disposition: Admit
Date of Disposition: 09/03/24
Time of Disposition: 21:25
Admit to doctor: hospitalist
Presentation/result/management discussed w/ accepting MD/DO: Hospitalist
Patient with high blood pressure during this ER visit?: No
Condition: Fair
Covid-19: Not Applicable
Discharge Problem:
Pneumonia
Prescriptions:
No Action
clonazepam 0.5 MG tablet
0.5 mg PO HS
Eliquis 2.5 MG tablet
2.5 mg PO DAILY
famotidine 40 MG tablet
40 mg PO DAILY
aspirin 81 MG tablet,chewable
81 mg PO HS
tamsulosin 0.4 mg Capsule
0.4 mg PO HS
pregabalin 50 mg Capsule
50 mg PO HS
atorvastatin 40 MG tablet
40 mg PO HS
Referrals:
Charlie Randall MD [Family Provider] -
Interventions
Interventions:
*Risk Screen - Suicide Last Done: 09/03/24 16:05
*General Assessment Last Done: 09/03/24 18:29
*Neglect/Abuse Screening Last Done: 09/03/24 16:05
ED- Fall Risk Assessment Last Done: 09/03/24 18:29
*ED COVID-19 Vaccine History Last Done: 09/03/24 18:29
ED- Cardiac Assessment Last Done: 09/03/24 18:29
ED- Neurological Assessment Last Done: 09/03/24 18:29
ED- Pulmonary Assessment Last Done: 09/03/24 18:29
Discharge Date and Time
Print Language: LAO
[2024-09-03] MEDS: NSS 500 IV (20:17)
[2024-09-03 20:39] LABS: Lactic Acid 1.3 mmol/L (0.7-2.0)
[2024-09-03] MEDS: ZITHROMAX INFUSION 250 IV (21:26)
[2024-09-03] MEDS: ROCEPHIN 1000 MG IV (21:27)
--- NOTE | 2024-09-03 21:38 | HPS.HSE ---
Family Physician
-
Family Physician: Charlie Randall
Chief Complaint
-
weakness
History of Present Illness
Patient is a 83-year-old male with past medical history significant for CAD, hyperlipidemia, GERD, anxiety, Hx DVT and prostate cancer who presents to [facility] ED for evaluation of of weakness. Patient reports he has been weak and a little
lightheaded starting yesterday. Son at bedside reports low grad temp yesterday at home. Patient denies any chills, cough, shortness of breath, chest pain, nausea, vomiting, constipation, diarrhea or urinary symptoms.
Medical History
Past Medical History
Past Medical History: Reports Other
Additional Past Medical History:
CAD
hyperlipidemia
GERD
anxiety
Hx DVT
prostate cancer
Past Surgical History: Reports Other
Additional Past Surgical History:
left inguinal hernia repair
appendectomy
TURP
CABG
Social History
Tobacco: Non-smoker
Alcohol: Occasional (5 beers weekly)
Drug: None
Personal:
Living: With Family
Employment: Retired
Family History
Family History: Not pertinent
Allergies / Home Medications
Allergies reflects when Allergies were last updated in [facility].
Home Medications with original date entered in [facility]
Allergy/Medication List:
Allergies
Allergy/AdvReac Type Severity Reaction Status Date / Time
No Known Allergies Allergy Verified 04/16/24 11:06
Home Medications
clonazepam 0.5 mg tablet 0.5 mg PO HS sleep 11/18/13
apixaban 2.5 mg tablet (Eliquis) 2.5 mg PO DAILY 10/13/21
aspirin 81 mg chewable tablet 81 mg PO HS 11/22/23
famotidine 40 mg tablet 40 mg PO DAILY 11/22/23
atorvastatin 40 mg tablet 40 mg PO HS 09/03/24
pregabalin 50 mg capsule 50 mg PO HS 09/03/24
tamsulosin 0.4 mg capsule 0.4 mg PO HS 09/03/24
Review of Systems
-
History Source: Patient
Constitutional: Reports Fever and Fatigue
EENT: Reports No Symptoms
Respiratory: Reports No Symptoms
Cardiac: Reports No Symptoms
Abdomen/GI: Reports No Symptoms
: Reports No Symptoms
Musculoskeletal: Reports No Symptoms
Skin: Reports No Symptoms
Neurological: Reports No Symptoms
Endocrine: Reports No Symptoms
Hematologic/Lymphatic: Reports No Symptoms
Psych: Reports No Symptoms
Physical Exam
Vital Signs
Vital Signs
Temp Pulse Resp BP Pulse Ox
98.3 F 65 19 99/52 93
09/03/24 16:05 09/03/24 19:17 09/03/24 18:58 09/03/24 21:00 09/03/24 21:30
Physical Exam
General: Well Developed, Well Nourished, No Apparent Distress, Comfortable and Conversant
HEENT: NormoCephalic, Moist mucous membranes and Atraumatic
Respiratory: Clear, Non Labored Respirations and Decreased Breath Sounds
Cardiac: S1/S2 and Regular Rhythm; No Murmur, Rub or Gallop
Breast: Deferred by me
GI: Soft, Non Tender, Non Distended and Normal Bowel Sounds; No Organomegaly
Rectal: Deferred by Provider
Genito-urinary: Deferred by me
Musculoskeletal: No Clubbing, No Cyanosis and No Edema
Skin: No Rash
Neuro: Awake, Alert, AO x 3 and Nonfocal/grossly intact
Psych: Calm and Intact Judgment/Insight
Laboratory Results
-
09/03/24 16:35
09/03/24 16:35
Laboratory Results
Lactic Acid 1.3 mmol/L (0.7-2.0) 01/22/25 20:16
Total Bilirubin 1.1 mg/dl (0.2-1.3) 09/03/24 16:35
AST 27 U/L (17-59) 09/03/24 16:35
ALT 24 U/L (0-50) 09/03/24 16:35
Alkaline Phosphatase 102 U/L (38-126) 09/03/24 16:35
Data Reviewed
-
Diagnostic Radiology: Report Reviewed by me (CXR: 1. New moderate airspace opacity in the lingula and superior segment of the left lower lobe which is most likely PNEUMONIA in the setting of fever. An inflammatory pneumonitis or subsegmental
atelectasis/scarring are considered less likely. 2. Moderate cardiomegaly. 3. Previous CABG surge)
Lab Data: Labs Reviewed by me (WBC 27.0)
Impression/Plan
-
IMPRESSION/PLAN:
#pneumonia
CXR: 1. New moderate airspace opacity in the lingula and superior segment of the left lower lobe which is most likely PNEUMONIA in the setting of fever. An inflammatory pneumonitis or subsegmental atelectasis/scarring are considered less likely.
2. Moderate cardiomegaly.
3. Previous CABG surgery with chronic sternotomy wire fractures.
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
WBC 27.0
- Admit to med/surg
- IV antibiotics
- supportive care
#CAD
#hyperlipidemia
- continue atorvastatin
#GERD
- continue famotidine
#anxiety
- continue PRN clonazepam
#Hx DVT
- hold Eliquis
#prostate cancer
Code status: Full code
DVT Prophylaxis: Lovenox Sq
--- NOTE | 2024-09-03 22:18 | W.PN.UPDATE ---
Update Note
Progress Note Update
Presents to the condition with therapy. I agree with the findings with history of physical medical code assessment and plan..
This is a 83-year-old male with past medical history significant for CAD status post CABG in 2013, hyperlipidemia, myelodysplastic syndrome previously on treatment but now off treatment for 2 months, prior DVT on prophylactic apixaban, BPH who
presents to the emergency department with approximately 1 day of weakness.
Patient's spouse reported that started about 1 day ago. He reported some weakness. While he was coming down the stairs this morning he was unable to walk due to weakness. He measured a temperature of 100.6 at home. His weakness persisted so they
decided bring him to the emergency department. Patient denies any urinary symptoms. He actually denies feeling short of breath or coughing. No known sick contacts. He reported that he was given azithromycin a few weeks ago for presumed
bronchitis. He denied any diarrhea nausea or vomiting. He denies having any chest pain palpitations lightheadedness. He had 1 episode of dizziness. He is known to have chronic low blood pressure.
In the emergency department he was afebrile, blood pressure was 99/50 which is his baseline, he was satting 93% on room air, respiratory rate was 19. Pulse 84. CBC was notable for leukocytosis to 27,000, hemoglobin 11.3 platelets 228. Chemistry
is BUN and creatinine were unremarkable.
Chest x-ray shows a lingula and left lower lobe opacity. COVID test was negative. Influenza test was negative.
On my examination the patient was well-appearing and in no acute distress. He had no respiratory distress. He had crackles on exam bilaterally. There was no peripheral edema.
Assessment and plan
Patient with mutlifocal pneumonia, h/o MDS and CAD s/p CABG. High risk for decompensation
- admit to med/surg
- ceftriaxone/azithromycin
- no cough, no sputum
- check legionella ag
- check procal in am
- routine O2 check and supportive measures
CAD
- continue aspirin/statin
DVT PPX - lovenox sq
Code Status - Full Code
[2024-09-04] VITALS (10 sets, daily range): BP systolic 85–116; BP diastolic 43–55; BMI 21.7
[2024-09-04 04:38] LABS: Hematocrit 30.9 % (39.0-52.0); Hemoglobin 10.5 g/dL (13.0-18.0); Mean Corpuscular Hgb 34.7 pg (27.0-31.0); Mean Platelet Volume 9.8 fL (7.4-10.4); Platelet Count 184 10^3/uL (130-400); Red Blood Cell Count 3.03 10^6/uL (4.70-6.10); Red Cell Dist. Width 13.3 % (11.5-14.5); White Blood Cell Count 17.1 10^3/uL (4.8-10.8)
[2024-09-04 05:02] LABS: Blood Urea Nitrogen 25 mg/dl (9-20); Calcium 8.5 mg/dl (8.4-10.2); Carbon Dioxide 30 mmol/L (22-30); Chloride 103 mmol/L (98-107); Estimated Creatinine Clearance 50 ml/min; Glucose 99 mg/dl (70-99); Potassium 4.4 mmol/L (3.5-5.1); Sodium 139 mmol/L (135-145); eGFR > 60.00
[2024-09-04 05:29] LABS: Urine Albumin Trace (Neg - Trace); Urine Bilirubin Negative (Negative); Urine Character Clear (Clear); Urine Color Yellow; Urine Glucose Negative (Negative); Urine Ketone Negative (Negative); Urine Leukocyte Negative (Negative); Urine Nitrite Negative (Negative); Urine Occult Blood Negative (Negative); Urine Urobilinogen Negative (Neg - 1+); Urine pH 6.5 (5.0-9.0)
--- NOTE | 2024-09-04 09:49 | CM ---
Addendum entered by PRASHANTH Woodard 09/04/24 09:58:
PATIENT IS NOT OBSERVATION.
Original Note:
Met with patient who signed Obs letter. Admitted with pna. He lives wit in 2 level home, no steps to enter.
He was independent at home.
uses Cane and has rolling walker, tub bench and tub grab bars.
There is half bath on entry engineer.
Pharmacy: [facility] in [place]
PCP Wilbur oRss PA-C
PLAN: home no needs.
[2024-09-04] MEDS: PEPCID 20 MG PO (09:58)
--- NOTE | 2024-09-04 10:28 | W.PN.HOSP.TC ---
Today's Communication/Plan
-
Continue antibiotics
Assessment / Plan
Assessment / Plan
83-year-old male presented to the hospital with generalized weakness.
Chest x-ray moderate opacity in the lingula and superior segment of the left lower lobe
Echo 03/03/2024-low normal LV systolic function. EF 50%. Basal to mid inferior hypokinesis. Moderate mitral regurgitation. Aortic sclerosis without stenosis. Mild AI.
CVS: S1-S2 normal
Chest: left sided rales
Abdomen: Soft, NT / Bowel sounds present
Extremities: No edema
# Pneumonia
White count 27,000
IV antibiotics-Zithromax and ceftriaxone
Speech therapy evaluation
Mucolytics
Oxygen support if needed
White count improving
Sputum culture if possible
COVID-negative
# Mild Hyponatremia-resolved
# Hyperlipidemia- Hyperlipidemia
# History of prostate cancer status post surgery-continue Flomax
# CAD-CABG 2013 continue aspirin, statin
# H/O DVT-on Eliquis prophylactic dose as OP
# Myelodysplastic syndrome-now off of treatment for the past 2 months. Follows with .
# Migraines
# Anxiety-continue clonazepam
# GERD-continue Pepcid
# Ex Smoker
# DVT prophylaxis-Lovenox
# Full code
D/W RN
D/W Daughter at bed side
Anticipated Discharge: 24 - 48 hours
Subjective/Interval History
-
Date of Service: September 04, 2024
Objective Data
-
Labs:
Laboratory Results
09/04/24
04:32
WBC 17.1 H
Hgb 10.5 L
Hct 30.9 L
Plt Count 184
Sodium 139
Potassium 4.4
Chloride 103
Carbon Dioxide 30
BUN 25 H
Creatinine 1.0
Glucose 99
Calcium 8.5
Vital Signs:
Vital Signs
Temp Pulse Resp BP Pulse Ox
98.0 F 60 18 108/50 96
09/04/24 09:16 09/04/24 09:16 09/04/24 09:16 09/04/24 09:16 09/04/24 09:16
[2024-09-04] MEDS: MUCINEX 600 MG PO ×2 (11:46→21:02)
--- NOTE | 2024-09-04 15:40 | PTOTSP ---
Speech Language Pathology
Pt seen for clinical bedside swallow evaluation. Pt denied any previous PNA. P.O. trials of puree, regular solids, and thin liquids provided. Adequate mastication, bolus formation, and A-P transit noted with no oral residue. No overt signs of
aspiration.
Recommend:
(1) Regular solids/thin liquids
(2) General aspiration precautions
(3) Meds as tolerated
(4) LITHOGRAPHIC STRIPPER to sign off. Please reconsult as indicated
[2024-09-04] MEDS: LOVENOX 40 MG SC (17:33)
[2024-09-04] MEDS: KLONOPIN 0.5 MG PO (21:02)
[2024-09-04] MEDS: LIPITOR 40 MG PO (21:02)
[2024-09-04] MEDS: LOW STRENGTH ASPIRIN 81 MG PO (21:02)
[2024-09-04] MEDS: ZITHROMAX 252.5 MG IV (21:03)
[2024-09-04] MEDS: STERILE WATER FOR INJECTION 10 ML IV (21:03)
[2024-09-04] MEDS: LYRICA 50 MG PO (21:03)
[2024-09-04] MEDS: FLOMAX 0.4 MG PO (21:03)
[2024-09-04] MEDS: ROCEPHIN 1000 MG IV (21:03)
--- NOTE | 2024-09-05 07:07 | W.PN.HOSP.TC ---
Today's Communication/Plan
-
switch to oral antibiotics azithromycin and Augmentin
likely discharge tomorrow if patient remains stable/continues to improve
Assessment / Plan
Assessment / Plan
Physical Exam
General: No acute distress, comfortable
CVS: S1-S2 NSR no murmurs rubs gallops
Chest: Clear to auscultation b/l
Abdomen: Soft, NT / Bowel sounds present
Extremities: No edema
Neuro: AOx3 conversant coherent
Psych: calm
83-year-old male presented to the hospital with generalized weakness.
Chest x-ray moderate opacity in the lingula and superior segment of the left lower lobe
Echo 03/03/2024-low normal LV systolic function. EF 50%. Basal to mid inferior hypokinesis. Moderate mitral regurgitation. Aortic sclerosis without stenosis. Mild AI.
# Pneumonia
White count 27,000
IV antibiotics-Zithromax and ceftriaxone switched to PO Azithromycin and Augmentin
Speech therapy eval appreciated appropriate Reg diet w/ thin liquids
Mucolytics
Stable respiratory status on room air
leukocytosis resolved
COVID-negative
# Mild Hyponatremia-resolved
# Hyperlipidemia- Hyperlipidemia
# History of prostate cancer status post surgery-continue Flomax
# CAD-CABG 2013 continue aspirin, statin
# H/O DVT-on Eliquis prophylactic dose as OP
# Myelodysplastic syndrome-now off of treatment for the past 2 months. Follows with .
# Migraines
# Anxiety-continue clonazepam
# GERD-continue Pepcid
# Ex Smoker
# DVT prophylaxis-Lovenox
# Full code
Discussed with patient and patient's son Neri
I spent a total of 45 minutes with the patient or on the floor. More than 50% of this time involved counseling and coordination of care.
Anticipated Discharge: Within 24 hours
Subjective/Interval History
-
Date of Service: September 05, 2024
No acute distress sitting up comfortably in bed. Reports feeling well, weakness significantly improved. Stable respiratory status on room air. Son Neri present during evaluation- notes patient likely at baseline ambulatory function (uses walker
at baseline).
Objective Data
-
Labs:
Laboratory Results
09/05/24
06:51
WBC Pending
Hgb Pending
Hct Pending
Plt Count Pending
Sodium Pending
Potassium Pending
Chloride Pending
Carbon Dioxide Pending
BUN Pending
Creatinine Pending
Glucose Pending
Calcium Pending
Vital Signs:
Vital Signs
Temp Pulse Resp BP Pulse Ox
97.8 F 74 18 108/49 94
09/04/24 23:04 09/04/24 23:08 09/04/24 23:04 09/04/24 23:08 09/04/24 23:04
I&O
09/04/24 09/05/24 09/06/24
06:59 06:59 06:59
Intake Total 660 / 660
Balance 660 / 660
[2024-09-05 07:21] VITALS: BP 94/47
[2024-09-05 07:24] LABS: Hematocrit 29.9 % (39.0-52.0); Hemoglobin 9.8 g/dL (13.0-18.0); Mean Corp Hgb Conc. 32.8 g/dL (33.0-37.0); Mean Corpuscular Hgb 33.3 pg (27.0-31.0); Mean Corpuscular Volume 101.7 fL (80.0-94.0); Mean Platelet Volume 9.9 fL (7.4-10.4); Platelet Count 163 10^3/uL (130-400); Red Blood Cell Count 2.94 10^6/uL (4.70-6.10); Red Cell Dist. Width 13.5 % (11.5-14.5); White Blood Cell Count 5.4 10^3/uL (4.8-10.8)
[2024-09-05] MEDS: PEPCID 20 MG PO (07:40)
[2024-09-05] MEDS: MUCINEX 600 MG PO ×2 (07:40→19:47)
[2024-09-05 08:04] LABS: Blood Urea Nitrogen 21 mg/dl (9-20); Calcium 8.6 mg/dl (8.4-10.2); Carbon Dioxide 25 mmol/L (22-30); Chloride 103 mmol/L (98-107); Estimated Creatinine Clearance 50 ml/min; Glucose 128 mg/dl (70-99); Potassium 4.1 mmol/L (3.5-5.1); Sodium 138 mmol/L (135-145); eGFR > 60.00
[2024-09-05 15:19] VITALS: BP 103/46
[2024-09-05] MEDS: ZITHROMAX 250 MG PO (15:47)
[2024-09-05] MEDS: LOVENOX 40 MG SC (18:17)
[2024-09-05] MEDS: AUGMENTIN 875 MG/125 MG 1 TABLET PO (19:48)
[2024-09-05] MEDS: KLONOPIN 0.5 MG PO (21:04)
[2024-09-05] MEDS: LYRICA 50 MG PO (21:04)
[2024-09-05] MEDS: LOW STRENGTH ASPIRIN 81 MG PO (21:05)
[2024-09-05] MEDS: LIPITOR 40 MG PO (21:05)
[2024-09-05] MEDS: FLOMAX 0.4 MG PO (21:05)
[2024-09-05 23:46] VITALS: BP 96/47
[2024-09-06 07:00] VITALS: BP 112/52
--- NOTE | 2024-09-06 07:19 | W.PN.HOSP.TC ---
Today's Communication/Plan
-
discharge
Assessment / Plan
Assessment / Plan
Physical Exam
General: No acute distress, comfortable
CVS: S1-S2 NSR no murmurs rubs gallops
Chest: Clear to auscultation b/l
Abdomen: Soft, NT / Bowel sounds present
Extremities: No edema
Neuro: AOx3 conversant coherent
Psych: calm
83-year-old male presented to the hospital with generalized weakness.
Chest x-ray moderate opacity in the lingula and superior segment of the left lower lobe
Echo 03/03/2024-low normal LV systolic function. EF 50%. Basal to mid inferior hypokinesis. Moderate mitral regurgitation. Aortic sclerosis without stenosis. Mild AI.
# Pneumonia
IV antibiotics-Zithromax and ceftriaxone switched to PO Azithromycin and Augmentin. Abx to continue through 09/07/24 for total 5 days abx
Speech therapy eval appreciated appropriate Reg diet w/ thin liquids
Mucolytics
Stable respiratory status on room air
leukocytosis resolved
COVID-negative
# Mild Hyponatremia-resolved
# Hyperlipidemia
# History of prostate cancer status post surgery-continue Flomax
# CAD-CABG 2013 continue aspirin, statin
# H/O DVT-on Eliquis prophylactic dose as OP
# Myelodysplastic syndrome-now off of treatment for the past 2 months. Follows with .
# Migraines
# Anxiety-continue clonazepam
# GERD-continue Pepcid
# Ex Smoker
# DVT prophylaxis-Lovenox
# Full code
Medically stable for discharge home with outpatient follow up recommendations.
Discussed with patient and patient's son Neri
Total Time Preparing Discharge __40 minutes including examination of the patient, summary of the hospital stay, instructions for continuing care to all relevant caregivers; and preparation of discharge records, prescriptions, and referral
forms if necessary.
Anticipated Discharge: Today
Subjective/Interval History
-
Date of Service: September 06, 2024
Seen and examined at bedside in acute distress sitting up comfortably in bed. Patient reports feeling well. Denies new acute issues. Eager to go home.
Objective Data
-
Labs:
Laboratory Results
09/06/24
06:00
WBC Pending
Hgb Pending
Hct Pending
Plt Count Pending
Sodium Pending
Potassium Pending
Chloride Pending
Carbon Dioxide Pending
BUN Pending
Creatinine Pending
Glucose Pending
Calcium Pending
Vital Signs:
Vital Signs
Temp Pulse Resp BP Pulse Ox
97.9 F 64 16 96/47 96
09/05/24 23:46 09/05/24 23:46 09/05/24 23:46 09/05/24 23:46 09/05/24 23:46
I&O
09/05/24 09/06/24 09/07/24
06:59 06:59 06:59
Intake Total 660 / 660 1440 / 1440
Balance 660 / 660 1440 / 1440
[2024-09-06 08:13] LABS: Hematocrit 33.6 % (39.0-52.0); Mean Corp Hgb Conc. 32.7 g/dL (33.0-37.0); Mean Corpuscular Hgb 33.5 pg (27.0-31.0); Mean Corpuscular Volume 102.4 fL (80.0-94.0); Mean Platelet Volume 10.4 fL (7.4-10.4); Platelet Count 180 10^3/uL (130-400); Red Blood Cell Count 3.28 10^6/uL (4.70-6.10); Red Cell Dist. Width 13.2 % (11.5-14.5); White Blood Cell Count 4.7 10^3/uL (4.8-10.8)
[2024-09-06] MEDS: MUCINEX 600 MG PO (08:42)
[2024-09-06] MEDS: PEPCID 20 MG PO (08:43)
[2024-09-06] MEDS: ZITHROMAX 250 MG PO (08:43)
[2024-09-06] MEDS: AUGMENTIN 875 MG/125 MG 1 TABLET PO (08:43)
[2024-09-06 08:49] LABS: Blood Urea Nitrogen 23 mg/dl (9-20); Calcium 9.1 mg/dl (8.4-10.2); Carbon Dioxide 27 mmol/L (22-30); Chloride 101 mmol/L (98-107); Estimated Creatinine Clearance 56 ml/min; Glucose 96 mg/dl (70-99); Potassium 4.1 mmol/L (3.5-5.1); Sodium 137 mmol/L (135-145); eGFR > 60.00
--- NOTE | 2024-09-06 12:35 | W.DCSUMMARY ---
Discharge Summary
Discharge Data
Date of Admission: 09/03/24
Date of Discharge: 09/06/24
-
Pending Results: Yes
Additional Pending Results:
official culture results
Discharge Plan
-
Patient Disposition: Home (Routine Discharge)
Discharge Diagnosis/Procedures: Pneumonia
Mild Anemia Leukopenia
Condition: Fair
Diet: Regular
Activity: As tolerated and With Walker
Driving Restrictions: As prior to admission
Bathing Restrictions: None
Blood Work: Repeat CBC with primary care provider in 1 week of discharge.
Others Tests: Repeat Chest X-ray with primary care provider in 1 month of discharge
Activity Restrictions/Additional Instructions:
Please follow up with primary care provider in 1 week of discharge.
Augmentin and Azithromycin have been prescribed for pneumonia. 09/07/24 is your last day of antibiotics.
Please take medications as prescribed/recommended and follow up with primary care provider and/or other healthcare provider involved in your care for further adjustments to your medication regimen as necessary.
Referrals:
Charlie Randall MD [Family Provider] - in one week
Prescriptions:
New
amoxicillin-pot clavulanate 875-125 mg Tablet
1 tab PO Q12 Qty: 3 0RF
Rx Instructions:
09/07/24 is your last day for antibiotics
azithromycin 250 mg Tablet
250 mg PO DAILY Qty: 1 0RF
Rx Instructions:
09/07/24 last day of antibiotics
Continued
clonazepam 0.5 MG tablet
0.5 mg PO HS
Eliquis 2.5 MG tablet
2.5 mg PO DAILY
famotidine 40 MG tablet
40 mg PO DAILY
aspirin 81 MG tablet,chewable
81 mg PO HS
tamsulosin 0.4 mg Capsule
0.4 mg PO HS
pregabalin 50 mg Capsule
50 mg PO HS
atorvastatin 40 MG tablet
40 mg PO HS
Discharge Orders:
Discharge Patient (As Directed); Ordered 09/06/24
Ordered By: Filippo Puente
Discharge Date and Time
Print Language: CUBAN
--- NOTE | 2024-09-06 12:57 | CM ---
CM reviewed medical records. Plan for discharge to home with family.
PLAN: home
[2024-09-06 13:08] VITALS: BP 97/57
== END 2024-09-06 14:28 | disposition home or self-care (01) | DRG 194 ==
LOC: 1 ACUTE 22:38
PROVIDERS: Emergency Medicine; Nurse Practitioner; Nurse Practitioner Family; ADMITTING PHYSICIAN Internal Medicine; ATTENDING PHYSICIAN Internal Medicine; EMERGENCY PHYSICIAN Emergency Medicine; FAMILY PHYSICIAN Family Medicine
DX: J18.9 Pneumonia, unspecified organism (principal); E87.1 Hypo-osmolality and hyponatremia; I25.10 Atherosclerotic heart disease of native coronary artery without angina pectoris; E78.00 Pure hypercholesterolemia, unspecified; K21.9 Gastro-esophageal reflux disease without esophagitis; F41.9 Anxiety disorder, unspecified; D46.9 Myelodysplastic syndrome, unspecified; I25.2 Old myocardial infarction; Z79.82 Long term (current) use of aspirin; Z79.899 Other long term (current) drug therapy; Z11.52 Encounter for screening for COVID-19; Z95.1 Presence of aortocoronary bypass graft; Z92.21 Personal history of antineoplastic chemotherapy; Z86.718 Personal history of other venous thrombosis and embolism; Z85.46 Personal history of malignant neoplasm of prostate; Z79.01 Long term (current) use of anticoagulants
CPT/HCPCS: 71046; 80048; 80053; 81003; 83605; 85025; 85027; 87040; 87205; 87502; 87811; 92610; 93005; 96361; 96365; 96375; 99285

== ENCOUNTER → 2024-09-09 07:49 | Outpatient (REF) | payer OTHER, SELFPAY ==
[2024-09-09 08:21] LABS: % Basophils 0.5 % (0-2); % Eosinophils 2.1 % (0-6); % Immature Granulocytes 2.1 % (0-0.5); % Lymphocytes 13.5 % (20.5-51.1); % Monocytes 12.3 % (1.7-9.3); % Neutrophils 69.5 % (42.2-75.2); Absolute Eosinophils 0.1 10^3/uL (0-0.7); Absolute Immature Granulocytes 0.1 10^3/uL (0-0.05); Absolute Lymphocytes 0.6 10^3/uL (1.2-3.4); Absolute Monocytes 0.5 10^3/uL (0.1-0.6); Absolute Neutrophils 2.9 10^3/uL (1.4-6.5); Hematocrit 35.2 % (39.0-52.0); Hemoglobin 11.9 g/dL (13.0-18.0); Mean Corp Hgb Conc. 33.8 g/dL (33.0-37.0); Mean Corpuscular Hgb 33.9 pg (27.0-31.0); Mean Corpuscular Volume 100.3 fL (80.0-94.0); Mean Platelet Volume 9.9 fL (7.4-10.4); Platelet Count 217 10^3/uL (130-400); Red Blood Cell Count 3.51 10^6/uL (4.70-6.10); Red Cell Dist. Width 13.1 % (11.5-14.5); White Blood Cell Count 4.2 10^3/uL (4.8-10.8)
[2024-09-09 09:17] LABS: ALT (SGPT) 24 U/L (0-50); AST (SGOT) 28 U/L (17-59); Alkaline Phosphatase 116 U/L (38-126); Blood Urea Nitrogen 22 mg/dl (9-20); Calcium 8.9 mg/dl (8.4-10.2); Carbon Dioxide 29 mmol/L (22-30); Chloride 102 mmol/L (98-107); Glucose 100 mg/dl (70-99); HDL Cholesterol 80 mg/dl; Iron 87 ug/dl (49-181); LDL Cholesterol, Calculated 33 mg/dl; Potassium 4.8 mmol/L (3.5-5.1); Sodium 142 mmol/L (135-145); Total Bilirubin 0.6 mg/dl (0.2-1.3); Total Cholesterol 123 mg/dl (50-199); Total Protein 7.4 g/dl (6.3-8.2); Triglyceride 53 mg/dl (10-149); Very Low Density Lipoprotein 10 mg/dl (0-30); eGFR > 60.00
[2024-09-09 09:26] LABS: Percent Saturation 35 % (20-50); Total Iron Binding Capacity 248 ug/dl (261-462)
== END ==
LOC: OIDL 07:49
PROVIDERS: Physician Assistant; ATTENDING PHYSICIAN Internal Medicine Hematology & Oncology
DX: I80.202 Phlebitis and thrombophlebitis of unspecified deep vessels of left lower extremity (principal); D46.9 Myelodysplastic syndrome, unspecified; D50.0 Iron deficiency anemia secondary to blood loss (chronic); D51.9 Vitamin B12 deficiency anemia, unspecified; D52.8 Other folate deficiency anemias; I95.1 Orthostatic hypotension
CPT/HCPCS: 36415; 80053; 80061; 82728; 83540; 83550; 85025

== ENCOUNTER → 2024-09-30 09:07 | Outpatient (REF) | payer OTHER, SELFPAY ==
[2024-09-30 09:27] LABS: % Basophils 0.2 % (0-2); % Eosinophils 2.8 % (0-6); % Immature Granulocytes 0.6 % (0-0.5); % Lymphocytes 13.3 % (20.5-51.1); % Monocytes 17.6 % (1.7-9.3); % Neutrophils 65.5 % (42.2-75.2); Absolute Eosinophils 0.1 10^3/uL (0-0.7); Absolute Lymphocytes 0.6 10^3/uL (1.2-3.4); Absolute Monocytes 0.8 10^3/uL (0.1-0.6); Absolute Neutrophils 3.1 10^3/uL (1.4-6.5); Hematocrit 33.4 % (39.0-52.0); Mean Corp Hgb Conc. 32.9 g/dL (33.0-37.0); Mean Corpuscular Hgb 33.7 pg (27.0-31.0); Mean Corpuscular Volume 102.5 fL (80.0-94.0); Mean Platelet Volume 9.8 fL (7.4-10.4); Platelet Count 284 10^3/uL (130-400); Red Blood Cell Count 3.26 10^6/uL (4.70-6.10); Red Cell Dist. Width 12.7 % (11.5-14.5); White Blood Cell Count 4.7 10^3/uL (4.8-10.8)
[2024-09-30 10:31] LABS: ALT (SGPT) 36 U/L (0-50); AST (SGOT) 34 U/L (17-59); Albumin 4.4 g/dl (3.5-5.0); Alkaline Phosphatase 126 U/L (38-126); Blood Urea Nitrogen 25 mg/dl (9-20); Calcium 9.1 mg/dl (8.4-10.2); Carbon Dioxide 29 mmol/L (22-30); Chloride 101 mmol/L (98-107); Glucose 154 mg/dl (70-99); HDL Cholesterol 82 mg/dl; Iron 62 ug/dl (49-181); LDL Cholesterol, Calculated 29 mg/dl; Potassium 4.9 mmol/L (3.5-5.1); Sodium 138 mmol/L (135-145); Total Bilirubin 1.1 mg/dl (0.2-1.3); Total Cholesterol 129 mg/dl (50-199); Total Protein 7.8 g/dl (6.3-8.2); Triglyceride 94 mg/dl (10-149); Very Low Density Lipoprotein 18 mg/dl (0-30); eGFR > 60.00
[2024-09-30 10:43] LABS: Percent Saturation 27 % (20-50); Total Iron Binding Capacity 225 ug/dl (261-462)
[2024-09-30 11:41] LABS: Folate > 20.0 ng/ml (2.76-20); Vitamin B12 572 pg/ml (239-931)
[2024-10-01 10:16] LABS: Glycohemoglobin (HgbA1c) 5.5 % (4.0-5.6)
== END ==
LOC: OIDL 09:07
PROVIDERS: ATTENDING PHYSICIAN Internal Medicine Hematology & Oncology; OTHER PHYSICIAN Physician Assistant
DX: I80.202 Phlebitis and thrombophlebitis of unspecified deep vessels of left lower extremity (principal); D46.9 Myelodysplastic syndrome, unspecified; D50.0 Iron deficiency anemia secondary to blood loss (chronic); D51.9 Vitamin B12 deficiency anemia, unspecified; D52.8 Other folate deficiency anemias; I95.1 Orthostatic hypotension
CPT/HCPCS: 36415; 80053; 80061; 82607; 82728; 82746; 83036; 83540; 83550; 85025

== ENCOUNTER → 2024-10-02 12:36 | Outpatient (REF) | payer OTHER, SELFPAY | LOC: RAD 12:36 | PROVIDERS: ATTENDING PHYSICIAN Physician Assistant | DX: R10.11 Right upper quadrant pain (principal) | CPT/HCPCS: 74176 ==

== ENCOUNTER → 2024-10-21 09:08 | Outpatient (REF) | payer OTHER, SELFPAY ==
[2024-10-21 09:27] LABS: % Basophils 0.7 % (0-2); % Eosinophils 4.3 % (0-6); % Immature Granulocytes 0.7 % (0-0.5); % Lymphocytes 19.3 % (20.5-51.1); % Monocytes 12.5 % (1.7-9.3); % Neutrophils 62.5 % (42.2-75.2); Absolute Eosinophils 0.1 10^3/uL (0-0.7); Absolute Lymphocytes 0.5 10^3/uL (1.2-3.4); Absolute Monocytes 0.4 10^3/uL (0.1-0.6); Absolute Neutrophils 1.8 10^3/uL (1.4-6.5); Hematocrit 37.4 % (39.0-52.0); Hemoglobin 12.1 g/dL (13.0-18.0); Mean Corp Hgb Conc. 32.4 g/dL (33.0-37.0); Mean Corpuscular Hgb 33.2 pg (27.0-31.0); Mean Corpuscular Volume 102.7 fL (80.0-94.0); Mean Platelet Volume 9.5 fL (7.4-10.4); Platelet Count 230 10^3/uL (130-400); Red Blood Cell Count 3.64 10^6/uL (4.70-6.10); Red Cell Dist. Width 13.1 % (11.5-14.5); White Blood Cell Count 2.8 10^3/uL (4.8-10.8)
== END ==
LOC: OIDL 09:08
PROVIDERS: ATTENDING PHYSICIAN Internal Medicine Hematology & Oncology; FAMILY PHYSICIAN Physician Assistant
DX: I80.202 Phlebitis and thrombophlebitis of unspecified deep vessels of left lower extremity (principal); D46.9 Myelodysplastic syndrome, unspecified; D50.0 Iron deficiency anemia secondary to blood loss (chronic); D51.9 Vitamin B12 deficiency anemia, unspecified; D52.8 Other folate deficiency anemias; I95.1 Orthostatic hypotension
CPT/HCPCS: 36415; 85025

== ENCOUNTER → 2024-11-11 12:42 | Outpatient (REF) | payer OTHER, SELFPAY ==
[2024-11-11 13:17] LABS: % Basophils 0.5 % (0-2); % Eosinophils 3.1 % (0-6); % Immature Granulocytes 0.5 % (0-0.5); % Lymphocytes 10.6 % (20.5-51.1); % Monocytes 10.9 % (1.7-9.3); % Neutrophils 74.4 % (42.2-75.2); Absolute Eosinophils 0.1 10^3/uL (0-0.7); Absolute Lymphocytes 0.4 10^3/uL (1.2-3.4); Absolute Monocytes 0.4 10^3/uL (0.1-0.6); Absolute Neutrophils 2.9 10^3/uL (1.4-6.5); Hematocrit 36.5 % (39.0-52.0); Hemoglobin 11.9 g/dL (13.0-18.0); Mean Corp Hgb Conc. 32.6 g/dL (33.0-37.0); Mean Corpuscular Hgb 32.7 pg (27.0-31.0); Mean Corpuscular Volume 100.3 fL (80.0-94.0); Mean Platelet Volume 10.2 fL (7.4-10.4); Platelet Count 194 10^3/uL (130-400); Red Blood Cell Count 3.64 10^6/uL (4.70-6.10); Red Cell Dist. Width 12.9 % (11.5-14.5); White Blood Cell Count 3.9 10^3/uL (4.8-10.8)
[2024-11-11 14:41] LABS: Iron 49 ug/dl (49-181)
[2024-11-11 14:52] LABS: Percent Saturation 20 % (20-50); Total Iron Binding Capacity 243 ug/dl (261-462)
[2024-11-11 15:19] LABS: Uric Acid 3.9 mg/dl (3.5-8.5)
== END ==
LOC: OIDL 12:42
PROVIDERS: ATTENDING PHYSICIAN Internal Medicine Hematology & Oncology; FAMILY PHYSICIAN Physician Assistant
DX: I80.202 Phlebitis and thrombophlebitis of unspecified deep vessels of left lower extremity (principal); D46.9 Myelodysplastic syndrome, unspecified; D50.0 Iron deficiency anemia secondary to blood loss (chronic); D51.9 Vitamin B12 deficiency anemia, unspecified; D52.8 Other folate deficiency anemias; I95.1 Orthostatic hypotension
CPT/HCPCS: 36415; 82728; 83540; 83550; 84550; 85025

== ENCOUNTER → 2024-12-02 09:04 | Outpatient (REF) | payer OTHER, SELFPAY ==
[2024-12-02 09:29] LABS: % Basophils 0.6 % (0-2); % Immature Granulocytes 1.1 % (0-0.5); % Lymphocytes 19.9 % (20.5-51.1); % Monocytes 17.4 % (1.7-9.3); Absolute Eosinophils 0.1 10^3/uL (0-0.7); Absolute Lymphocytes 0.7 10^3/uL (1.2-3.4); Absolute Monocytes 0.6 10^3/uL (0.1-0.6); Absolute Neutrophils 2.1 10^3/uL (1.4-6.5); Hematocrit 38.3 % (39.0-52.0); Hemoglobin 12.3 g/dL (13.0-18.0); Mean Corp Hgb Conc. 32.1 g/dL (33.0-37.0); Mean Corpuscular Volume 99.7 fL (80.0-94.0); Mean Platelet Volume 9.7 fL (7.4-10.4); Platelet Count 230 10^3/uL (130-400); Red Blood Cell Count 3.84 10^6/uL (4.70-6.10); Red Cell Dist. Width 13.8 % (11.5-14.5); White Blood Cell Count 3.6 10^3/uL (4.8-10.8)
== END ==
LOC: OIDL 09:04
PROVIDERS: ATTENDING PHYSICIAN Internal Medicine Hematology & Oncology; FAMILY PHYSICIAN Physician Assistant
DX: I80.202 Phlebitis and thrombophlebitis of unspecified deep vessels of left lower extremity (principal); D46.9 Myelodysplastic syndrome, unspecified; D50.0 Iron deficiency anemia secondary to blood loss (chronic)
CPT/HCPCS: 36415; 85025

== ENCOUNTER → 2024-12-23 08:47 | Outpatient (REF) | payer OTHER, SELFPAY ==
[2024-12-23 09:00] LABS: % Basophils 0.3 % (0-2); % Eosinophils 1.7 % (0-6); % Immature Granulocytes 6.2 % (0-0.5); % Monocytes 13.7 % (1.7-9.3); % Neutrophils 67.1 % (42.2-75.2); Absolute Eosinophils 0.1 10^3/uL (0-0.7); Absolute Immature Granulocytes 0.4 10^3/uL (0-0.05); Absolute Lymphocytes 0.6 10^3/uL (1.2-3.4); Absolute Monocytes 0.8 10^3/uL (0.1-0.6); Absolute Neutrophils 3.9 10^3/uL (1.4-6.5); Hematocrit 39.6 % (39.0-52.0); Hemoglobin 12.8 g/dL (13.0-18.0); Mean Corp Hgb Conc. 32.3 g/dL (33.0-37.0); Mean Platelet Volume 10.3 fL (7.4-10.4); Platelet Count 209 10^3/uL (130-400); Red Cell Dist. Width 13.9 % (11.5-14.5); White Blood Cell Count 5.8 10^3/uL (4.8-10.8)
[2024-12-23 10:10] LABS: Total Iron Binding Capacity 236 ug/dl (261-462)
[2024-12-23 10:46] LABS: Iron 93 ug/dl (49-181); Percent Saturation 39 % (20-50)
[2024-12-23 10:51] LABS: Vitamin B12 621 pg/ml (239-931)
== END ==
LOC: OIDL 08:47
PROVIDERS: ATTENDING PHYSICIAN Internal Medicine Hematology & Oncology; FAMILY PHYSICIAN Physician Assistant
DX: I80.202 Phlebitis and thrombophlebitis of unspecified deep vessels of left lower extremity (principal); D46.9 Myelodysplastic syndrome, unspecified; D50.0 Iron deficiency anemia secondary to blood loss (chronic)
CPT/HCPCS: 36415; 82607; 82728; 83540; 83550; 85025

== ENCOUNTER 2025-01-04 09:46 | Emergency (ER) | payer OTHER, SELFPAY ==
[2025-01-04 09:49] VITALS: BP 133/64
[2025-01-04 10:05] VITALS: BMI 23.6
--- NOTE | 2025-01-04 10:07 | ED.GENMED ---
Addendum entered and electronically signed by Cal Sanderson PA-C 01/07/25 06:12:
Urine culture shows greater than 100,000 colony-forming units of coagulase-negative staph. On Keflex. Sensitivities pending
Original Note:
History of Present Illness
General
Chief Complaint: Male Genito-Urinary Symptoms
Source: patient
Exam Limitations: none
Time Seen by Provider: 01/04/25 10:05
Nursing documentation reviewed up to this point in time: agreed with
History of Present Illness
History of Present Illness:
84-year-old male presents emergency ferment due to difficulty urinating over the past 2 days. He has a history of prostate cancer and is followed by Dr. Cardoza. He takes Eliquis due to history of DVT.
Past History
Past History
ED Past Medical History: CAD, Cancer, GERD, Hypercholesterolemia, Other and Other
ED Past Surgical History: Appendectomy, Cardiac, Urological and Other
Social History
Tobacco: Non-smoker
Alcohol: None
Personal:
Living: with family
Employment: Retired
Family History
Family History: Negative Early CAD
Review of Systems
Review of Systems
Allergies reviewed?: Yes
All Other Systems: Not applicable
Constitutional: Reports no symptoms
EENT: Reports no symptoms
Respiratory: Reports no symptoms
Cardiac: Reports no symptoms
ABD/GI: Reports no symptoms
: Reports difficulty voiding
Musculoskeletal: Reports no symptoms
Skin: Reports no symptoms
Neurological: Reports no symptoms
Endocrine: Reports no symptoms
Hematologic/Lymphatic: Reports no symptoms
Psychiatric: Reports no symptoms
Phy Exam
Physical Exam
Physical Exam:
Physical Exam
General: no apparent distress, not acutely ill
Neck: supple. no meningeal signs. normal posterior pharynx
Heart: equal radial pulses.
HEENT: Pupils equal round reactive to light, EOMI
Lungs: no acute respiratory distress.
Abdomen: Bladder distended, no rebound or guarding
Neuro: alert and oriented. no focal neurological deficits
Skin: no rash
Psychiatric: well kept. interactive and cooperative
Extremities: no edema. . good distal pulses
Course
Orders/Labs/Results
Orders:
Orders
01/04/25 10:06
Bladder Scan- Treatment ONCE
Grimaldo Placement- Treatment ONCE
Reason for insertion: Acute Retention
01/04/25 10:18
Grimaldo [Grimaldo Placement- Treatment] ONCE
Reason for insertion: Acute Retention
01/04/25 10:20
Urinalysis Reflex To Culture Urgent
Date Specimen was Collected: 01/04/25
Time Specimen was Collected: 10:18
Urine Microscopic Reflex Cult Urgent
Urine Culture Urgent
LYNDON Source: U
Specimen Description:
Date Specimen was Collected: 01/04/25
Time Specimen was Collected: 10:18
01/04/25 11:02
Cephalexin Monohydrate [Keflex] 500 mg PO NOW STA
Abnormal Lab Results
01/04/25
10:20
Ur Occult Blood Reflex 4+ A
(Negative)
Leukocyte Esterase Rfl 3+ A
(Negative)
Urine RBC 30-40 A /HPF
(0-2)
Urine WBC (Reflex) >100 A /HPF
(0-5)
Urine Bacteria (Reflex) Few A
(Negative)
Urine Albumin (Reflex) 4+ A
(Neg - Trace)
Vital Signs
Initial and Last Documented VS:
Initial Vital Signs
Temp Pulse Resp BP Pulse Ox
98.5 F 78 16 133/64 95
01/04/25 09:49 01/04/25 09:49 01/04/25 09:49 01/04/25 09:49 01/04/25 09:49
Last Documented Vital Signs
Temp Pulse Resp BP Pulse Ox
98.5 F 78 16 133/64 95
01/04/25 09:49 01/04/25 09:49 01/04/25 09:49 01/04/25 09:49 01/04/25 09:49
MDM/Problems Addressed
Differential Diagnosis Includes:
UTI, urinary retention
MDM/Problems Addressed:
84-year-old male with urinary retention, will place Grimaldo catheter, and discharge to follow-up with Dr. Cardoza, urology. Will treat UTI with Keflex 500 twice daily for 7 days.
Chronic conditions affecting care: Cancer (Prostate cancer)
Acute Exacerbation and/or Progression of Chronic Illness: Cancer (Prostate cancer)
*Pulse Oximetry
Patient hypoxic: no
*Critical Care Note
Total Time (30-74mins, 75-104mins- exclusive of procedures): Not Applicable
Data Reviewed
Review of Other/Old Records Reveals: Progress Notes (Patient hospitalized for pneumonia August 2024)
Source: records
Patient Management
Social determinants of health affecting care: Living situation and Strong social support
Escalation/DeEscalation of care consider admission/obs:
Admit not indicated
ED Attending Note
-
Portions of this chart may have been created with voice recognition software.� Occasional wrong word or��sound alike� substitutions may have occurred due to the inherent limitations of voice recognition software.
Discharge Plan
Departure
Patient Disposition: Home (Routine Discharge)
Date of Disposition: 01/04/25
Time of Disposition: 11:03
Patient with high blood pressure during this ER visit?: Yes
Condition: Good
Discharge Problem:
Acute urinary retention, Acute UTI
Instructions: Urinary tract infections in adults, How to Care for Your Grimaldo Catheter, Male, Urinary Retention (DC), BLOOD PRESSURE
Prescriptions:
New
cephalexin 500 mg capsule
500 mg PO BID 7 Days Qty: 14 0RF
No Action
clonazepam 0.5 MG tablet
0.5 mg PO HS
Eliquis 2.5 MG tablet
2.5 mg PO DAILY
famotidine 40 MG tablet
40 mg PO DAILY
aspirin 81 MG tablet,chewable
81 mg PO HS
tamsulosin 0.4 mg Capsule
0.4 mg PO HS
pregabalin 50 mg Capsule
50 mg PO HS
atorvastatin 40 MG tablet
40 mg PO HS
amoxicillin-pot clavulanate 875-125 mg Tablet
1 tab PO Q12 Qty: 3 0RF
Rx Instructions:
09/07/24 is your last day for antibiotics
azithromycin 250 mg Tablet
250 mg PO DAILY Qty: 1 0RF
Rx Instructions:
09/07/24 last day of antibiotics
Referrals:
Rivas Cardoza MD [Active] - Call in 1-3 days for appt
Interventions
Interventions:
*Risk Screen - Suicide Last Done: 01/04/25 10:05
*General Assessment Last Done: 01/04/25 10:05
*Neglect/Abuse Screening Last Done: 01/04/25 10:05
*ED- Fall Risk Assessment Last Done: 01/04/25 10:05
*ED COVID-19 Vaccine History Last Done: 01/04/25 10:05
ED-Male Genitourinary Assessment Last Done: 01/04/25 10:05
Discharge Date and Time
Print Language: THAI
[2025-01-04 10:27] LABS: Urine Albumin 4+ (Neg - Trace); Urine Bilirubin Negative (Negative); Urine Character Cloudy (Clear); Urine Color Yellow; Urine Glucose Negative (Negative); Urine Ketone Negative (Negative); Urine Leukocyte 3+ (Negative); Urine Nitrite Negative (Negative); Urine Occult Blood 4+ (Negative); Urine Urobilinogen Negative (Neg - 1+)
[2025-01-04 10:47] LABS: Urine Squamous Cell 0-2 /LPF (Few)
[2025-01-04 10:48] LABS: Urine Amorphous Seen
[2025-01-04 10:56] LABS: Urine Red Blood Cell 30-40 /HPF (0-2); Urine White Cell >100 /HPF (0-5)
[2025-01-04 10:58] LABS: Urine Bacteria Few (Negative)
[2025-01-04] MEDS: KEFLEX 500 MG PO (11:07)
--- NOTE | 2025-01-08 11:12 | ED.ADDNOTE ---
ED Addendum
ED Addendum
ED Addendum Note:
Urine culture growing staph epidermidis. He was discharged on Keflex. Culture shows resistance to penicillins. called and notified of results. Prescription for Macrobid sent electronically to pharmacy based on susceptibilities. He has an appt
with his PCP later today and is scheduled to see urology next week.
== END 2025-01-04 11:11 | disposition home or self-care (01) ==
LOC: EMR 09:46
PROVIDERS: EMERGENCY PHYSICIAN Emergency Medicine; FAMILY PHYSICIAN Physician Assistant
DX: N39.0 Urinary tract infection, site not specified (principal); E78.00 Pure hypercholesterolemia, unspecified; I25.10 Atherosclerotic heart disease of native coronary artery without angina pectoris; Z86.718 Personal history of other venous thrombosis and embolism; Z90.49 Acquired absence of other specified parts of digestive tract
CPT/HCPCS: 99282; 81003; 81015; 87086; 87147; 87186

== ENCOUNTER → 2025-02-03 08:21 | Outpatient (REF) | payer OTHER, SELFPAY ==
[2025-02-03 08:51] LABS: % Basophils 0.3 % (0-2); % Eosinophils 4.8 % (0-6); % Immature Granulocytes 0.9 % (0-0.5); % Lymphocytes 10.3 % (20.5-51.1); % Neutrophils 70.7 % (42.2-75.2); Absolute Eosinophils 0.3 10^3/uL (0-0.7); Absolute Immature Granulocytes 0.1 10^3/uL (0-0.05); Absolute Lymphocytes 0.7 10^3/uL (1.2-3.4); Absolute Monocytes 0.9 10^3/uL (0.1-0.6); Absolute Neutrophils 4.7 10^3/uL (1.4-6.5); Hematocrit 38.5 % (39.0-52.0); Hemoglobin 12.4 g/dL (13.0-18.0); Mean Corp Hgb Conc. 32.2 g/dL (33.0-37.0); Mean Corpuscular Hgb 31.3 pg (27.0-31.0); Mean Corpuscular Volume 97.2 fL (80.0-94.0); Mean Platelet Volume 9.8 fL (7.4-10.4); Platelet Count 240 10^3/uL (130-400); Red Blood Cell Count 3.96 10^6/uL (4.70-6.10); Red Cell Dist. Width 14.2 % (11.5-14.5); White Blood Cell Count 6.6 10^3/uL (4.8-10.8)
[2025-02-03 10:14] LABS: Iron 86 ug/dl (49-181); Percent Saturation 35 % (20-50); Total Iron Binding Capacity 243 ug/dl (261-462)
[2025-02-03 13:15] LABS: Vitamin B12 565 pg/ml (239-931)
== END ==
LOC: OIDL 08:21
PROVIDERS: ATTENDING PHYSICIAN Internal Medicine Hematology & Oncology; FAMILY PHYSICIAN Physician Assistant
DX: I80.202 Phlebitis and thrombophlebitis of unspecified deep vessels of left lower extremity (principal); D46.9 Myelodysplastic syndrome, unspecified; D50.0 Iron deficiency anemia secondary to blood loss (chronic)
CPT/HCPCS: 36415; 82607; 82728; 83540; 83550; 85025

== ENCOUNTER → 2025-02-03 10:03 | Outpatient (REF) | payer OTHER, SELFPAY | LOC: RAD 10:03 | PROVIDERS: ATTENDING PHYSICIAN Internal Medicine Hematology & Oncology; FAMILY PHYSICIAN Family Medicine | DX: R22.43 Localized swelling, mass and lump, lower limb, bilateral (principal) | CPT/HCPCS: 93971 ==

== ENCOUNTER → 2025-02-24 08:35 | Outpatient (REF) | payer OTHER, SELFPAY ==
[2025-02-24 08:49] LABS: Hematocrit 35.1 % (39.0-52.0); Hemoglobin 11.5 g/dL (13.0-18.0); Mean Corp Hgb Conc. 32.8 g/dL (33.0-37.0); Mean Corpuscular Volume 97.8 fL (80.0-94.0); Platelet Count 268 10^3/uL (130-400); Red Cell Dist. Width 13.8 % (11.5-14.5)
[2025-02-24 11:00] LABS: ALT (SGPT) 16 U/L (0-50); AST (SGOT) 18 U/L (17-59); Albumin 4.2 g/dl (3.5-5.0); Alkaline Phosphatase 128 U/L (38-126); Blood Urea Nitrogen 22 mg/dl (9-20); Calcium 9.3 mg/dl (8.4-10.2); Carbon Dioxide 28 mmol/L (22-30); Chloride 107 mmol/L (98-107); Glucose 155 mg/dl (70-99); HDL Cholesterol 68 mg/dl; LDL Cholesterol, Calculated 36 mg/dl; Potassium 4.8 mmol/L (3.5-5.1); Sodium 141 mmol/L (135-145); Total Protein 7.8 g/dl (6.3-8.2); Very Low Density Lipoprotein 13 mg/dl (0-30); eGFR > 60.00
[2025-02-24 11:19] LABS: PSA, Total - Diagnostic 4.10 ng/ml (0.0-4.0)
[2025-02-24 14:15] LABS: Vitamin B12 401 pg/ml (239-931)
[2025-02-25 12:05] LABS: Glycohemoglobin (HgbA1c) 6.0 % (4.0-5.6)
== END ==
LOC: OIDL 08:35
PROVIDERS: ATTENDING PHYSICIAN Internal Medicine Hematology & Oncology; FAMILY PHYSICIAN Physician Assistant
DX: I80.202 Phlebitis and thrombophlebitis of unspecified deep vessels of left lower extremity (principal); D46.9 Myelodysplastic syndrome, unspecified; D50.0 Iron deficiency anemia secondary to blood loss (chronic); D52.8 Other folate deficiency anemias; I95.1 Orthostatic hypotension
CPT/HCPCS: 36415; 80053; 80061; 82607; 83036; 84153; 85025

== ENCOUNTER → 2025-03-17 08:39 | Outpatient (REF) | payer OTHER, SELFPAY ==
[2025-03-17 08:56] LABS: Hematocrit 36.4 % (39.0-52.0); Hemoglobin 11.8 g/dL (13.0-18.0); Mean Corp Hgb Conc. 32.4 g/dL (33.0-37.0); Mean Corpuscular Volume 97.6 fL (80.0-94.0); Platelet Count 245 10^3/uL (130-400); Red Cell Dist. Width 13.4 % (11.5-14.5)
[2025-03-17 10:20] LABS: Iron 135 ug/dl (49-181)
[2025-03-17 10:29] LABS: Total Iron Binding Capacity 244 ug/dl (261-462)
[2025-03-17 12:07] LABS: Ferritin 756.0 ng/ml (17.9-464.0)
== END ==
LOC: OIDL 08:39
PROVIDERS: ATTENDING PHYSICIAN Internal Medicine Hematology & Oncology; FAMILY PHYSICIAN Physician Assistant
DX: I80.202 Phlebitis and thrombophlebitis of unspecified deep vessels of left lower extremity (principal); D46.9 Myelodysplastic syndrome, unspecified; D50.0 Iron deficiency anemia secondary to blood loss (chronic); D52.8 Other folate deficiency anemias; I95.1 Orthostatic hypotension
CPT/HCPCS: 36415; 82728; 83540; 83550; 85025

== ENCOUNTER → 2025-04-28 08:44 | Outpatient (REF) | payer OTHER, SELFPAY ==
[2025-04-28 08:54] LABS: Hematocrit 38.1 % (39.0-52.0); Hemoglobin 12.4 g/dL (13.0-18.0); Mean Corp Hgb Conc. 32.5 g/dL (33.0-37.0); Mean Corpuscular Volume 98.4 fL (80.0-94.0); Platelet Count 225 10^3/uL (130-400); Red Cell Dist. Width 12.5 % (11.5-14.5)
== END ==
LOC: OIDL 08:44
PROVIDERS: ATTENDING PHYSICIAN Internal Medicine Hematology & Oncology; FAMILY PHYSICIAN Physician Assistant
DX: I80.202 Phlebitis and thrombophlebitis of unspecified deep vessels of left lower extremity (principal); D46.9 Myelodysplastic syndrome, unspecified; D50.0 Iron deficiency anemia secondary to blood loss (chronic); D51.9 Vitamin B12 deficiency anemia, unspecified; D52.8 Other folate deficiency anemias; I95.1 Orthostatic hypotension
CPT/HCPCS: 36415; 85025

== ENCOUNTER → 2025-05-19 08:37 | Outpatient (REF) | payer OTHER, SELFPAY ==
[2025-05-19 08:49] LABS: Hematocrit 37.4 % (39.0-52.0); Hemoglobin 12.3 g/dL (13.0-18.0); Mean Corp Hgb Conc. 32.9 g/dL (33.0-37.0); Mean Corpuscular Volume 95.4 fL (80.0-94.0); Platelet Count 226 10^3/uL (130-400); Red Cell Dist. Width 12.3 % (11.5-14.5)
== END ==
LOC: OIDL 08:37
PROVIDERS: ATTENDING PHYSICIAN Internal Medicine Hematology & Oncology; FAMILY PHYSICIAN Physician Assistant
DX: I80.202 Phlebitis and thrombophlebitis of unspecified deep vessels of left lower extremity (principal); D46.9 Myelodysplastic syndrome, unspecified; D50.0 Iron deficiency anemia secondary to blood loss (chronic); D51.9 Vitamin B12 deficiency anemia, unspecified; D52.8 Other folate deficiency anemias; I95.1 Orthostatic hypotension
CPT/HCPCS: 36415; 85025

== ENCOUNTER → 2025-06-09 09:29 | Outpatient (REF) | payer OTHER, SELFPAY | LOC: RAD 09:29 | PROVIDERS: ATTENDING PHYSICIAN Internal Medicine Hematology & Oncology; FAMILY PHYSICIAN Physician Assistant | DX: I80.202 Phlebitis and thrombophlebitis of unspecified deep vessels of left lower extremity (principal); D46.9 Myelodysplastic syndrome, unspecified; D50.0 Iron deficiency anemia secondary to blood loss (chronic); D51.9 Vitamin B12 deficiency anemia, unspecified; D52.8 Other folate deficiency anemias; I95.1 Orthostatic hypotension | CPT/HCPCS: 36415; 82607; 82728; 83540; 83550; 85025; 93970 ==

== ENCOUNTER → 2025-06-23 12:58 | Outpatient (REF) | payer OTHER, SELFPAY | LOC: RAD 12:58 | PROVIDERS: ATTENDING PHYSICIAN Physician Assistant | DX: M54.50 Low back pain, unspecified (principal) | CPT/HCPCS: 72110 ==

== ENCOUNTER → 2025-06-30 08:42 | Outpatient (REF) | payer OTHER, SELFPAY ==
[2025-06-30 08:58] LABS: Hematocrit 39.7 % (39.0-52.0); Hemoglobin 12.6 g/dL (13.0-18.0); Mean Corp Hgb Conc. 31.7 g/dL (33.0-37.0); Mean Corpuscular Volume 98.8 fL (80.0-94.0); Platelet Count 244 10^3/uL (130-400); Red Cell Dist. Width 13.6 % (11.5-14.5)
[2025-06-30 10:30] LABS: Ferritin 734.0 ng/ml (17.9-464.0)
== END ==
LOC: OIDL 08:42
PROVIDERS: ATTENDING PHYSICIAN Internal Medicine Hematology & Oncology; FAMILY PHYSICIAN Physician Assistant
DX: I80.202 Phlebitis and thrombophlebitis of unspecified deep vessels of left lower extremity (principal); D46.9 Myelodysplastic syndrome, unspecified; D50.0 Iron deficiency anemia secondary to blood loss (chronic); D51.9 Vitamin B12 deficiency anemia, unspecified; D52.8 Other folate deficiency anemias; I95.1 Orthostatic hypotension
CPT/HCPCS: 36415; 82728; 85025

== ENCOUNTER → 2025-07-21 08:33 | Outpatient (REF) | payer OTHER, SELFPAY ==
[2025-07-21 08:46] LABS: Hematocrit 37.4 % (39.0-52.0); Hemoglobin 12.4 g/dL (13.0-18.0); Mean Corp Hgb Conc. 33.2 g/dL (33.0-37.0); Mean Corpuscular Volume 97.1 fL (80.0-94.0); Platelet Count 275 10^3/uL (130-400); Red Cell Dist. Width 13.6 % (11.5-14.5)
== END ==
LOC: OIDL 08:33
PROVIDERS: ATTENDING PHYSICIAN Internal Medicine Hematology & Oncology; FAMILY PHYSICIAN Physician Assistant
DX: I80.202 Phlebitis and thrombophlebitis of unspecified deep vessels of left lower extremity (principal); D46.9 Myelodysplastic syndrome, unspecified; D50.0 Iron deficiency anemia secondary to blood loss (chronic); D51.9 Vitamin B12 deficiency anemia, unspecified; D52.8 Other folate deficiency anemias; I95.1 Orthostatic hypotension
CPT/HCPCS: 36415; 85025

== ENCOUNTER → 2025-08-11 08:32 | Outpatient (REF) | payer OTHER, SELFPAY ==
[2025-08-11 08:58] LABS: Hematocrit 36.1 % (39.0-52.0); Hemoglobin 11.9 g/dL (13.0-18.0); Mean Corp Hgb Conc. 33.0 g/dL (33.0-37.0); Mean Corpuscular Volume 98.4 fL (80.0-94.0); Platelet Count 217 10^3/uL (130-400); Red Cell Dist. Width 13.9 % (11.5-14.5)
[2025-08-11 09:51] LABS: Iron 74 ug/dl (49-181)
[2025-08-11 10:01] LABS: Total Iron Binding Capacity 236 ug/dl (261-462)
[2025-08-11 10:29] LABS: Ferritin 825.0 ng/ml (17.9-464.0)
== END ==
LOC: OIDL 08:32
PROVIDERS: ATTENDING PHYSICIAN Internal Medicine Hematology & Oncology; FAMILY PHYSICIAN Physician Assistant
DX: I80.202 Phlebitis and thrombophlebitis of unspecified deep vessels of left lower extremity (principal); D46.9 Myelodysplastic syndrome, unspecified; D50.0 Iron deficiency anemia secondary to blood loss (chronic); I95.1 Orthostatic hypotension; D52.8 Other folate deficiency anemias
CPT/HCPCS: 36415; 82728; 83540; 83550; 85025